=== PATIENT | male | born 1960 | race African-American/Black ===

== ENCOUNTER 2017-07-26 06:25 | Inpatient (IN) | payer OTHER ==
[2017-07-26] MEDS ORDERED: ceFAZolin 2 GM in Premix Bag 1 BAG IV ONE (07:19)
[2017-07-26] MEDS: Lactated Ringers 1,000 ML IV SCH ×2 (07:30→14:41)
--- NOTE | 2017-07-26 08:28 | PCM.PREANE ---
Preanesthetic Assessment - Anesthesia/Transfusion/Family Hx Anesthesia History: Prior Anesthesia Without Reaction Other Type of Anesthesia Reaction Comment: "father after coronary stent placement" "sister hard to wake" Family History of Anesthesia Reaction: No Transfusion History: No Prior Transfusion(s) - Review of Systems General: No Symptoms Pulmonary: No Symptoms Cardiovascular: No Symptoms Gastrointestinal: No Symptoms Neurological: No Symptoms Other: Reports: None - Physical Assessment NPO Status Date: 07/25/17 Height: 1.77 m Weight: 104.326 kg ASA Class: 2 Mental Status: Alert & Oriented x3 Airway Class: Mallampati = 2 Dentition: Reports: Normal Dentition ROM/Head Extension: Full Lungs: Clear to Auscultation, Normal Respiratory Effort Cardiovascular: Regular Rate, Regular Rhythm - Allergies Allergies/Adverse Reactions: Allergies Allergy/AdvReac Type Severity Reaction Status Date / Time No Known Allergies Allergy Verified 07/24/17 08:44 - Anesthesia Plan Pre-Op Medication Ordered: None - Acknowledgements Anesthesia Type Planned: Spinal Pt an Appropriate Candidate for the Planned Anesthesia: Yes Alternatives and Risks of Anesthesia Discussed w Pt/Guardian: Yes Pt/Guardian Understands and Agrees with Anesthesia Plan: Yes Additional Comments: PMH: CKD#, hld, HTN, chronic paresthesias RLL, occasional use of albuteral for wheezing without dx of COPD PreAnesthesia Questionnaire Cardiovascular History: Reports: Hypertension Respiratory History: Reports: Other (See Below) Other Respiratory History: "allergy induced SOB" has prescribed inhaler for this Gastrointestinal History: Reports: Other (See Below) Other Gastrointestinal History: occasional heartburn Musculoskeletal History: Reports: Fracture Other Musculoskeletal History: hx fx collarbone Endocrine/Metabolic History: Reports: Obesity/BMI 30+ - Past Surgical History Head Surgeries/Procedures: Reports: None Male Surgical History: Reports: Other (See Below) Other Male Surgeries/Procedures: circumcision at age 20 Musculoskeletal Surgical History: Reports: Other (See Below) Other Musculoskeletal Surgeries/Procedures:: hx crush injury to rt leg, surgery on rt leg x4 Dermatological Surgical History: Reports: Skin Graft - SUBSTANCE USE Smoking Status *Q: Never Smoker Recreational Drug Use History: No - HOME MEDS Home Medications: Home Meds Albuterol [IMW: Albuterol HFA] 2 puff INH ASDIRECTED PRN 07/24/17 [History] Cholecalciferol (Vitamin D3) [Vitamin D3] 1,000 units PO DAILY 07/24/17 [History ] Cyclobenzaprine [Flexeril] 10 mg PO ASDIRECTED PRN 07/24/17 [History] Lisinopril 10 mg PO DAILY 07/24/17 [History] Methocarbamol 750 mg PO TID PRN 07/24/17 [History] amLODIPine [Norvasc] 10 mg PO DAILY 07/24/17 [History] - CURRENT (IN HOUSE) MEDS Current Meds: Current Medications Tranexamic Acid (Cyklokapron) 2,000 mg IV ONETIME ONE Stop: 07/26/17 10:01 Discontinued Medications Cefazolin Sodium/Dextrose 2 gm (/ Premix) 50 mls @ 50 mls/hr IV ONETIME ONE Stop: 07/26/17 08:18 Tranexamic Acid (Cyklokapron) Confirm Administered Dose 2,000 mg .ROUTE .STK- MED ONE Stop: 07/26/17 07:31
[2017-07-26] MEDS ORDERED: Dexamethasone 4 MG/ML 5 ML MDV ONE (08:45)
[2017-07-26] MEDS ORDERED: Propofol 200 MG/20 ML SDV ONE (08:45)
[2017-07-26] MEDS ORDERED: Midazolam 1 MG/ML 2 ML SDV ONE ×2 (08:45→10:25)
[2017-07-26] MEDS ORDERED: diphenhydrAMINE 50 MG/ML SDV ONE (08:45)
[2017-07-26] MEDS ORDERED: Ondansetron 4 MG/2 ML SDV ONE (08:45)
[2017-07-26] MEDS ORDERED: fentaNYL 100 MCG/2 ML SDV ONE (08:45)
[2017-07-26] MEDS ORDERED: Phenylephrine 1% 10 MG/ML SDV ONE (11:02)
--- NOTE | 2017-07-26 12:27 | PCM.OPNOTE ---
- General Post-Op/Procedure Note Date of Surgery/Procedure: 07/26/17 Operative Procedure(s): right anterior REJI Findings: severe OA Pre Op Diagnosis: right hip osteoarthritis Post-Op Diagnosis: same Anesthesia Technique: Spinal Primary Surgeon: Ki Goodwin Mai Assembly Line Leader: Eva Waters Reason Assembly Line Leader Was Necessary: reduction, retracting, closing, manipulating Pathology: femoral head EBL in mLs: 700 Complications: none Condition: Good
[2017-07-26] MEDS ORDERED: Bisacodyl 10 MG Supp RECTAL PRN (12:39)
[2017-07-26] MEDS ORDERED: diphenhydrAMINE 25 MG Cap PO PRN (12:39)
[2017-07-26] MEDS ORDERED: Ondansetron 4 MG/2 ML SDV IV PRN (12:39)
[2017-07-26] MEDS ORDERED: Aluminum Hydroxide/Magnesium Hydroxide/Simethicone Susp 30 ML Cup PO PRN (12:39)
[2017-07-26] MEDS ORDERED: Albuterol 8 GM Inhaler INH PRN (12:40)
[2017-07-26] MEDS ORDERED: Cyclobenzaprine 10 MG Tab PO PRN (12:40)
--- NOTE | 2017-07-26 14:09 | PCM.POSTAN ---
POST ANESTHESIA ASSESSMENT - MENTAL STATUS Mental Status: Alert, Oriented - RESPIRATORY Respiratory Status: Respiratory Rate WNL, Airway Patent, O2 Saturation Stable - CARDIOVASCULAR CV Status: Pulse Rate WNL, Blood Pressure Stable - GASTROINTESTINAL GI Status: No Symptoms - POST OP HYDRATION Hydration Status: Adequate & Stable
[2017-07-26] MEDS: Acetaminophen/HYDROcodone 325-5 MG Tab PO PRN ×2 (15:10→19:17)
--- NOTE | 2017-07-26 17:41 | OR ---
SURGEON: Ki Gilmore MD DATE OF PROCEDURE: 07/26/2017 IMMERSION METAL CLEANER: Eva Waters PA-C. PREOPERATIVE DIAGNOSIS: Right hip osteoarthritis. POSTOPERATIVE DIAGNOSIS: Right hip osteoarthritis. OPERATION PERFORMED: Right anterior total hip arthroplasty. ANESTHESIA: Spinal with sedation. COMPLICATION: None. ESTIMATED BLOOD LOSS: 200 mL. SPECIMENS: None. IMPLANTS: Elaine [employer] Continuum trabecular metal shell cluster holes, 56 mm outer diameter, one 6.5 x 30 mm length bone screw, Vivacit-E neutral liner 36 mm inner diameter, Fitmore hip stem, size B standard offset 4, Biolox delta ceramic femoral head 36 mm diameter, zero neck length. INDICATIONS: The patient is a 56-year-old male with severe arthritis. He has failed conservative management treatment modification therapy. He wished undergo total hip replacement. He understands the risks, benefits, complications of the procedure including but not limited to infection, neurovascular injury, continued pain, DVT, leg length discrepancy, fracture, dislocation, deep infection, and he wished to proceed. DESCRIPTION OF PROCEDURE: The patient was seen in the preoperative area. Operative site was marked. The patient was transferred to the operating room, where spinal anesthetic was given. He was given sedation on the Allen table and placed supine and legs were placed in the leg bars with a narrow perineal post. Right hip was prepped and draped in a sterile fashion using alcohol and ChloraPrep with Ioban covering. He received preoperative antibiotics, Ancef, and also 2 g TXA. Formal time-out was taken, identifying the correct patient, procedure, and extremity. A 12 cm incision starting just lateral to the ASIS going obliquely down the femur was made. Dissection was carried down to subcutaneous tissues. Hemostasis was obtained. The fascia overlying the TFL was opened in a lateral to the lateral femoral cutaneous nerve and interval between sartorius and TFL and deep between the abductors and rectus were opened. The vastus lateralis fascia was opened and the anterior vessels were coagulated. A deep Slava tractor was placed. The capsule was then held and tagged with 2 FiberWires. The neck was cut from saddle region about 1.5 cm above the lesser trochanter and the head was removed. There was noted be severe arthritis. Remnants of labrum and pulvinar were removed and the inferior capsule was released as well as part of the iliopsoas tendon, because of severe tightness in the hip and preoperative flexion contracture. The head measured about 53 mm. Under fluoroscopic control after planing the bed to make sure the level of the hip. The acetabulum was sequentially reamed to 51 up to 55 mm. This had excellent fit and fill with the 56 mm trabecular metal shell with cluster screw hole straight superiorly in 40 degrees of abduction and 10 degrees of anteversion. This had excellent fit and fill. There was some uncovering laterally, but none anteriorly and bone screw was placed posterior superiorly and then after irrigating and drying the neutral liner was impacted. Attention was then paid to the femur. The femoral lift was placed. Leg was externally rotated, abducted, and extended. The superior capsule obturator, internus, and piriformis were released. Central canal finder was utilized and sequential broaching started rasp up to size B4 was made based on preoperative templating. The hip was trial reduced with an extended offset + 3.5 neck length. Printed overlay technique showed slightly long and slightly increased offset appeared to the opposite side. With fluoroscopy, the hip was then dislocated. The final B4 Fitmore extended offset stem was impacted in place following the [place] version. It was trial reduced with a zero neck length. Printed overlay technique showed equal leg lengths and slightly increased offset, which was deemed acceptable based on moving the hip. Hip was then dislocated and the Reilly taper was dried off and the final ceramic head, 36 mm, zero neck length was impacted. The hip was then relocated and 2 stay sutures were tied together. The fascia was closed with #1 Vicryl. Subcutaneous tissues with 2-0 Stratafix. Skin was closed running 4-0 Monocryl with Dermabond tape. Aquacel dressing was placed. The patient was transferred to recovery room in stable condition. Sponge and needle counts were correct at the end of the case. There were no complications. PLAN: The patient will be given aspirin for DVT prophylaxis. Weightbearing as tolerated. SHANA GUERRERO /[id number]
[2017-07-26] MEDS: Morphine 4 MG/ML Syringe IVPUSH PRN ×2 (18:31→21:16)
[2017-07-26] MEDS: ceFAZolin 2 GM in Premix Bag 1 BAG IV SCH (18:32)
[2017-07-26] MEDS: Docusate Sodium 100 MG Cap PO SCH (20:59)
[2017-07-27] MEDS: Acetaminophen/HYDROcodone 325-5 MG Tab PO PRN (00:22)
[2017-07-27] MEDS: Morphine 4 MG/ML Syringe IVPUSH PRN ×4 (00:41→13:35)
[2017-07-27] MEDS: Acetaminophen/oxyCODONE 325-5 MG Tab PO PRN ×4 (01:07→23:05)
[2017-07-27] MEDS: Lactated Ringers 1,000 ML IV SCH ×2 (01:10→15:04)
[2017-07-27] MEDS: ceFAZolin 2 GM in Premix Bag 1 BAG IV SCH (03:48)
[2017-07-27] MEDS: Aspirin 325 MG Tab.EC PO SCH ×2 (09:42→20:29)
[2017-07-27] MEDS: amLODIPine 5 MG Tab PO SCH (09:43)
[2017-07-27] MEDS: Losartan 50 MG Tab PO SCH (09:44)
[2017-07-27] MEDS: Cholecalciferol (Vitamin D3) 1,000 Unit Tab PO SCH (09:44)
[2017-07-27] MEDS: Docusate Sodium 100 MG Cap PO SCH ×2 (09:45→20:29)
--- NOTE | 2017-07-27 09:50 | PCM.SN ---
- Free Text/Narrative Note: S: Patient had lots of pain overnight in the thigh particularly muscle type pain. He was switched to Percocet and Valium was added. He has not been out of bed yet. He feels muscle aches stated in the past potassium has helped with this. He is eating with no issues. No other problems. Objective: Afebrile vital signs stable Dressing is clean dry and intact. There is a small amount of swelling in the thigh but none distally. He has normal sensation and motor distally with a 2+ pedal pulse. Hemoglobin is pending Assessment/plan: Postop day #1 right total hip arthroplasty - Weightbearing as tolerated with walker. Physical therapy. - Ecotrin for DVT prophylaxis and SCDs. - We'll add OxyContin and give him some potassium today. - He will hopefully revealed progress and possibly go home tomorrow.
--- NOTE | 2017-07-27 12:32 | PCM48HPAN ---
Post Anesthesia Note - EVALUATION WITHIN 48HRS OF ANESTHETIC Vital Signs in Normal Range: Yes Patient Participated in Evaluation: Yes Respiratory Function Stable: Yes Airway Patent: Yes Cardiovascular Function Stable: Yes Hydration Status Stable: Yes Pain Control Satisfactory: Yes Nausea and Vomiting Control Satisfactory: Yes Mental Status Recovered: Yes
[2017-07-27] MEDS ORDERED: Potassium Chloride 20 MEQ Tab.ER PO ONE (15:21)
[2017-07-27] MEDS: oxyCODONE ER 20 MG TAB.ER PO SCH (20:29)
[2017-07-28] MEDS: Lactated Ringers 1,000 ML IV SCH (00:07)
[2017-07-28] MEDS: Morphine 4 MG/ML Syringe IVPUSH PRN ×2 (00:07→06:59)
[2017-07-28] MEDS: Docusate Sodium 100 MG Cap PO SCH ×2 (09:53→20:35)
[2017-07-28] MEDS: Losartan 50 MG Tab PO SCH (09:54)
[2017-07-28] MEDS: Aspirin 325 MG Tab.EC PO SCH ×2 (09:54→20:35)
[2017-07-28] MEDS: Cholecalciferol (Vitamin D3) 1,000 Unit Tab PO SCH (09:55)
[2017-07-28] MEDS: Potassium Chloride 20 MEQ Tab.ER PO SCH (09:55)
[2017-07-28] MEDS: amLODIPine 5 MG Tab PO SCH (09:55)
[2017-07-28] MEDS: oxyCODONE ER 20 MG TAB.ER PO SCH ×2 (09:55→20:35)
[2017-07-28] MEDS ORDERED: Sodium Chloride 0.9% 2.5 ML Syringe FLUSH PRN (10:03)
[2017-07-28] MEDS ORDERED: Sodium Chloride 0.9% 10 ML Syringe FLUSH PRN (10:03)
--- NOTE | 2017-07-28 10:07 | PCM.SN ---
- Free Text/Narrative Note: S: Feels better today. Has ambulated once this morning. He refused therapy yesterday. He feels tired with morphine. No other issues. Objective: Afebrile vital signs stable Dressing is clean dry and intact. There is a small amount of swelling in the thigh but minimal distally. He has normal sensation and motor distally with a 2 + pedal pulse. Hemoglobin good Assessment/plan: Postop day #2 right total hip arthroplasty - Weightbearing as tolerated with walker. Physical therapy. - Ecotrin for DVT prophylaxis and SCDs. - to home when able. Follow-up in 2 weeks.
--- NOTE | 2017-07-28 10:09 | PCM.DCSUM1 ---
Discharge Summary - Hospital Course Brief History: Patient is admitted for elective right hip arthroplasty - Discharge Data Discharge Date: 07/28/17 Discharge Disposition: Home, Self-Care 01 Condition: Good - Patient Summary/Data Operative Procedure(s) Performed: right anterior REJI Consults: Consultations 07/26/17 12:39 PT Evaluation and Treatment [CONS] Routine Hospital Course: Patient was admitted and underwent uneventful total hip arthroplasty. Postoperatively he was admitted to the floor his pain was controlled with diet was advanced. He was slow to get up and move but eventually did. He was subsequently discharged home on postoperative day #2 - Patient Instructions Diet: Usual Diet as Tolerated Activity: Apply Ice, As Tolerated, Full Weight Bearing Driving: Do Not Drive Showering/Bathing: November Shower Wound/Incision Care: Do NOT Change Dressing Notify Provider of: Fever, Swelling and Redness, Drainage - Discharge Plan Home Medications: Home Meds Albuterol [IMW: Albuterol HFA] 2 puff INH ASDIRECTED PRN 07/24/17 [History] Cholecalciferol (Vitamin D3) [Vitamin D3] 1,000 units PO DAILY 07/24/17 [History ] Cyclobenzaprine [Flexeril] 10 mg PO ASDIRECTED PRN 07/24/17 [History] Methocarbamol 750 mg PO TID PRN 07/24/17 [History] amLODIPine [Norvasc] 5 mg PO DAILY 07/24/17 [History] Losartan [Cozaar] 25 mg PO DAILY 07/26/17 [History] Patient Handouts: Acetaminophen; Hydrocodone tablets or capsules, Total Hip Replacement, Care After, [id number], Docusate capsules, Aspirin Gastro- resistant tablet Referrals: Eva Waters PA [Physician Cement Side Laster] - 08/06/17 1:30 pm - Discharge Summary/Plan Comment DC Time >30 min.: No - Patient Data Vitals - Most Recent: Last Vital Signs Temp 36.8 C 07/28/17 08:00 Pulse 107 H 07/28/17 08:00 Resp 20 07/28/17 08:00 BP 119/66 07/28/17 09:55 Pulse Ox 94 L 07/28/17 08:00 Weight - Most Recent: 104.326 kg I&O - Last 24 hours: Intake & Output 07/27/17 07/28/17 07/28/17 22:59 06:59 14:59 Intake Total 2160 2265 Output Total 1223 3865 Balance 935 590 Lab Results - Last 24 hrs: Laboratory Results - last 24 hr 07/28/17 Range/Units 05:05 Hgb 10.0 L (13.0-17.0) g/dL Hct 29.5 L (38.0-50.0) % Med Orders - Current: Current Medications Al Hydroxide/Mg Hydroxide (Mag-Al Plus) 30 ml PO Q4H PRN PRN Reason: indigestion Albuterol (Ventolin Hfa) 0 gm INH ASDIRECTED PRN PRN Reason: Shortness of Breath Amlodipine Besylate (Norvasc) 5 mg PO DAILY [facility] Last Admin: 07/28/17 09:55 Dose: 5 mg Aspirin (Ecotrin) 325 mg PO BID [facility] Last Admin: 07/28/17 09:54 Dose: 325 mg Bisacodyl (Dulcolax) 10 mg RECTAL DAILY PRN PRN Reason: Constipation Cholecalciferol (Vitamin D3) 1,000 units PO DAILY [facility] Last Admin: 07/28/17 09:55 Dose: 1,000 units Cyclobenzaprine HCl (Flexeril) 10 mg PO BEDTIME PRN PRN Reason: Pain Last Admin: 07/26/17 23:32 Dose: 10 mg Diazepam (Valium) 5 mg IVPUSH TID PRN PRN Reason: Muscle Spasm Last Admin: 07/27/17 09:16 Dose: 5 mg Diphenhydramine HCl (Benadryl) 25 - 50 mg PO Q6H PRN PRN Reason: Itching Last Admin: 07/26/17 22:44 Dose: 25 mg Docusate Sodium (Colace) 100 mg PO BID [facility] Last Admin: 07/28/17 09:53 Dose: 100 mg Lactated Ringer's (Ringers, Lactated) 1,000 mls @ 100 mls/hr IV ASDIRECTED [facility] Last Admin: 07/28/17 00:07 Dose: 100 mls/hr Losartan Potassium (Cozaar) 25 mg PO DAILY [facility] Last Admin: 07/28/17 09:54 Dose: 25 mg Morphine Sulfate (Morphine) 1 - 3 mg IVPUSH Q3H PRN PRN Reason: Pain Last Admin: 07/28/17 06:59 Dose: 2 mg Ondansetron HCl (Zofran) 4 mg IV Q6HR PRN PRN Reason: NAUSEA/VOMITING Oxycodone HCl (Oxycontin) 20 mg PO Q12HR [facility] Last Admin: 07/28/17 09:55 Dose: 20 mg Oxycodone/Acetaminophen (Percocet 325-5 Mg) 1 tab PO Q4H PRN PRN Reason: Pain Last Admin: 07/27/17 23:05 Dose: 1 tab Potassium Chloride (Klor-Con M20) 40 meq PO DAILY [facility] Last Admin: 07/28/17 09:55 Dose: 40 meq Sodium Chloride (Saline Flush) 10 ml FLUSH ASDIRECTED PRN PRN Reason: Keep Vein Open Sodium Chloride (Saline Flush) 2.5 ml FLUSH ASDIRECTED PRN PRN Reason: Keep Vein Open Discontinued Medications Hydrocodone Bitart/Acetaminophen (Emmaus 325-5 Mg) 1 - 2 tab PO Q4H PRN PRN Reason: Pain Last Admin: 07/26/17 19:17 Dose: 2 tab Dexamethasone (Dexamethasone) Confirm Administered Dose 20 mg .ROUTE .STK-MED ONE Stop: 07/26/17 08:46 Diphenhydramine HCl (Benadryl) Confirm Administered Dose 50 mg .ROUTE .STK-MED ONE Stop: 07/26/17 08:46 Fentanyl (Sublimaze) Confirm Administered Dose 100 mcg .ROUTE .STK-MED ONE Stop: 07/26/17 08:46 Cefazolin Sodium/Dextrose 2 gm (/ Premix) 50 mls @ 50 mls/hr IV ONETIME ONE Stop: 07/26/17 08:18 Last Admin: 07/26/17 23:43 Dose: Not Given Cefazolin Sodium/Dextrose 2 gm (/ Premix) 50 mls @ 100 mls/hr IV Q8H [facility] Stop: 07/27/17 03:29 Last Admin: 07/27/17 03:48 Dose: 100 mls/hr Midazolam HCl (Versed 1 Mg/Ml) Confirm Administered Dose 2 mg .ROUTE .STK-MED ONE Stop: 07/26/17 08:46 Midazolam HCl (Versed 1 Mg/Ml) Confirm Administered Dose 2 mg .ROUTE .STK-MED ONE Stop: 07/26/17 10:26 Ondansetron HCl (Zofran) Confirm Administered Dose 4 mg .ROUTE .STK-MED ONE Stop: 07/26/17 08:46 Phenylephrine HCl (Delroy-Synephrine) Confirm Administered Dose 10 mg .ROUTE .STK- MED ONE Stop: 07/26/17 11:03 Potassium Chloride (Klor-Con M20) 40 meq PO ONETIME ONE Stop: 07/27/17 15:22 Last Admin: 07/27/17 16:12 Dose: 40 meq Propofol (Diprivan 20 Ml) Confirm Administered Dose 800 mg .ROUTE .STK-MED ONE Stop: 07/26/17 08:46 Tranexamic Acid (Cyklokapron) 2,000 mg IV ONETIME ONE Stop: 07/26/17 10:01 Last Admin: 07/26/17 23:43 Dose: Not Given Tranexamic Acid (Cyklokapron) Confirm Administered Dose 2,000 mg .ROUTE .STK- MED ONE Stop: 07/26/17 07:31 *Q Meaningful Use (DIS) - VTE *Q VTE Criteria *Q: - Stroke *Q Stroke Criteria *Q: - AMI *Q AMI Criteria *Q:
[2017-07-28] MEDS: Acetaminophen/oxyCODONE 325-5 MG Tab PO PRN ×2 (12:43→18:29)
[2017-07-29] MEDS: Acetaminophen/oxyCODONE 325-5 MG Tab PO PRN (04:13)
[2017-07-29] MEDS: Docusate Sodium 100 MG Cap PO SCH (09:09)
[2017-07-29] MEDS: oxyCODONE ER 20 MG TAB.ER PO SCH (09:09)
[2017-07-29] MEDS: Cholecalciferol (Vitamin D3) 1,000 Unit Tab PO SCH (09:09)
[2017-07-29] MEDS: Aspirin 325 MG Tab.EC PO SCH (09:09)
[2017-07-29] MEDS: Potassium Chloride 20 MEQ Tab.ER PO SCH (09:09)
[2017-07-29] MEDS: amLODIPine 5 MG Tab PO SCH (09:09)
[2017-07-29] MEDS: Losartan 50 MG Tab PO SCH (09:10)
--- NOTE | 2017-07-29 09:23 | CR ---
EXAMINATION: Right hip HISTORY: Total hip hardware COMPARISON: 06/06/2017 TECHNIQUE: 2 views FINDINGS/IMPRESSION: Operative control films provided demonstrate right total hip hardware in good po sition and alignment.
--- NOTE | 2017-07-29 10:38 | PCM.SN ---
- Free Text/Narrative Note: Subjective: Patient was not able to go home yesterday because of inability to walk for go up stairs. He is doing much better today. He is amply in the hallways with no issues. His back feels better than before surgery and he is happy with his hip pain. Subjective: Afebrile, vital signs stable Dressing is clean/dry/intact he has normal sensation and motor distally with no swelling. 2+ pedal pulse Assessment/plan: He is doing very well today ambulating. He'll continue with weightbearing as tolerated with a walker transitioning to a cane. He will continue aspirin for DVT prophylaxis. He will go home today he'll follow-up in 2 weeks. He'll leave his dressing on. Continue with Percocet.
== END 2017-07-29 11:00 | disposition home or self-care (01) | DRG 470 ==
LOC: MW.MS 06:25
PROVIDERS: ADMIT Orthopaedic Surgery; ATTEND Orthopaedic Surgery
PROC: 0SR90JZ Replacement of Right Hip Joint with Synthetic Substitute, Open Approach (ICD-10-PCS; principal; 2017-07-26)
DX: M16.11 Unilateral primary osteoarthritis, right hip (principal); Z79.899 Other long term (current) drug therapy
CPT/HCPCS: 01214; 36415; 76000; 76000-26; 85014; 85018; 88305; 88311; 97110-GP; 97162-GP; A9270-GY; C1713; C1776; J0690; J1100; J1200; J2250; J2270; J2370; J2405; J2704; J3010; J7120

== ENCOUNTER 2019-10-07 06:43 | Day surgery (SDC) | payer OTHER ==
[2019-10-07] MEDS ORDERED: Lactated Ringers 1,000 ML IV SCH (06:45)
[2019-10-07] MEDS ORDERED: fentaNYL 100 MCG/2 ML SDV ONE (07:03)
[2019-10-07] MEDS ORDERED: Propofol 200 MG/20 ML SDV ONE (07:03)
[2019-10-07] MEDS ORDERED: Midazolam 1 MG/ML 2 ML SDV ONE (07:03)
[2019-10-07] MEDS ORDERED: Bupivacaine 0.25%/EPINEPHrine 1:200,000 10 ML SDV ONE (07:32)
--- NOTE | 2019-10-07 07:40 | PCM.PREANE ---
Preanesthetic Assessment - Anesthesia/Transfusion/Family Hx Anesthesia History: Prior Anesthesia Without Reaction Other Type of Anesthesia Reaction Comment: "father after coronary stent placement" "sister hard to wake" Family History of Anesthesia Reaction: No Transfusion History: No Prior Transfusion(s) Intubation History: Unknown - Review of Systems General: No Symptoms Pulmonary: No Symptoms Cardiovascular: No Symptoms Gastrointestinal: No Symptoms Neurological: No Symptoms Other: Reports: None - Physical Assessment NPO Status Date: 10/06/19 NPO Status Time: 20:00 Vital Signs: Last Vital Signs Temp 36.9 C 10/07/19 07:00 Pulse 72 10/07/19 07:00 Resp 16 10/07/19 07:00 BP 137/91 H 10/07/19 07:00 Pulse Ox 94 L 10/07/19 07:00 Height: 5 ft 9 in Weight: 99.337 kg ASA Class: 2 Mental Status: Alert & Oriented x3 Airway Class: Mallampati = 2 Dentition: Reports: Normal Dentition, Partial (upper (removed)) Thyro-Mental Finger Breadths: 3 Mouth Opening Finger Breadths: 3 ROM/Head Extension: Full Lungs: Clear to Auscultation, Normal Respiratory Effort Cardiovascular: Regular Rate, Regular Rhythm - Allergies Allergies/Adverse Reactions: Allergies Allergy/AdvReac Type Severity Reaction Status Date / Time Penicillins Allergy Anaphylactic Verified 10/06/19 12:20 Shock shellfish derived Allergy Anaphylactic Verified 10/06/19 12:20 Shock - Blood Blood Available: No - Anesthesia Plan Pre-Op Medication Ordered: None - Acknowledgements Anesthesia Type Planned: MAC Pt an Appropriate Candidate for the Planned Anesthesia: Yes Alternatives and Risks of Anesthesia Discussed w Pt/Guardian: Yes Pt/Guardian Understands and Agrees with Anesthesia Plan: Yes PreAnesthesia Questionnaire HEENT History: Reports: Other (See Below) Other HEENT History: wears glasses, has upper front partial removable denture Cardiovascular History: Reports: Hypertension Respiratory History: Gastrointestinal History: Reports: Other (See Below) Other Gastrointestinal History: occasional heartburn Musculoskeletal History: Reports: Fracture Other Musculoskeletal History: hx fx collarbone Endocrine/Metabolic History: Reports: Diabetes, Type II (lost a lot of weight- thinks he got rid of diabetes, does not check glucose levels), Obesity/BMI 30+ ( BMI 32.3) - Past Surgical History Head Surgeries/Procedures: Reports: None GI Surgical History: Reports: Colonoscopy, Hernia, Inguinal Male Surgical History: Reports: Other (See Below) Other Male Surgeries/Procedures: circumcision at age 20 Musculoskeletal Surgical History: Reports: Hip Replacement (right), Other (See Below) Other Musculoskeletal Surgeries/Procedures:: hx crush injury to rt leg, surgery on rt leg x4 (fasciotomy) Dermatological Surgical History: Reports: Skin Graft - SUBSTANCE USE Smoking Status *Q: Never Smoker Recreational Drug Use History: No - HOME MEDS Home Medications: Home Meds amLODIPine [Norvasc] 5 mg PO QAM 07/24/17 [History] Losartan [Cozaar] 25 mg PO QAM 07/26/17 [History] Cholecalciferol (Vitamin D3) [Vitamin D3] 25 mcg PO DAILY 10/06/19 [History] metFORMIN [Glucophage XR] 500 mg PO QAM 10/06/19 [History] - CURRENT (IN HOUSE) MEDS Current Meds: Current Medications Lactated Ringer's (Ringers, Lactated) 1,000 mls @ 100 mls/hr IV ASDIRECTED YASMIN Discontinued Medications Bupivacaine HCl/Epinephrine Bitart (Marcaine 0.25%/Epinephrine 1:200,000) Confirm Administered Dose 10 ml .ROUTE .STK-MED ONE Stop: 10/07/19 07:33 Fentanyl (Sublimaze) Confirm Administered Dose 100 mcg .ROUTE .STK-MED ONE Stop: 10/07/19 07:04 Midazolam HCl (Versed 1 Mg/Ml) Confirm Administered Dose 2 mg .ROUTE .STK-MED ONE Stop: 10/07/19 07:04 Propofol (Diprivan 20 Ml) Confirm Administered Dose 200 mg .ROUTE .STK-MED ONE Stop: 10/07/19 07:04
[2019-10-07] MEDS ORDERED: Octyl 2-Cyanoacrylate 1 Tube ONE (08:09)
--- NOTE | 2019-10-07 09:10 | PCM.OPNOTE ---
- General Post-Op/Procedure Note Date of Surgery/Procedure: 10/07/19 Operative Procedure(s): excisional biopsy, face mass, right Findings: cystic mass w black content 8 mm, margin 3 mm diameter, oriented short 6 oclock , long 12 oclock; [id number] Pre Op Diagnosis: r face mass Post-Op Diagnosis: Same Anesthesia Technique: General LMA Primary Surgeon: Eren Gibbs Pathology: sent, long 12 oclock, short 6 oclock Complications: None Condition: Good
[2019-10-07] MEDS ORDERED: Acetaminophen/oxyCODONE 325-5 MG Tab PO PRN (09:11)
--- NOTE | 2019-10-07 09:26 | PCM.POSTAN ---
POST ANESTHESIA ASSESSMENT - MENTAL STATUS Mental Status: Alert, Oriented - VITAL SIGNS Vital Signs: Last Vital Signs Temp 36.5 C 10/07/19 08:53 Pulse 68 10/07/19 09:19 Resp 13 10/07/19 09:19 BP 123/83 10/07/19 09:19 Pulse Ox 95 10/07/19 09:19 - RESPIRATORY Respiratory Status: Respiratory Rate WNL, Airway Patent, O2 Saturation Stable - CARDIOVASCULAR CV Status: Pulse Rate WNL, Blood Pressure Stable - GASTROINTESTINAL GI Status: No Symptoms - PAIN Pain Score: 0 - POST OP HYDRATION Hydration Status: Adequate & Stable
--- NOTE | 2019-10-07 10:01 | PCM48HPAN ---
Post Anesthesia Note - EVALUATION WITHIN 48HRS OF ANESTHETIC Vital Signs in Normal Range: Yes Patient Participated in Evaluation: Yes Respiratory Function Stable: Yes Airway Patent: Yes Cardiovascular Function Stable: Yes Hydration Status Stable: Yes Pain Control Satisfactory: Yes Nausea and Vomiting Control Satisfactory: Yes Mental Status Recovered: Yes Vital Signs: Last Vital Signs Temp 36.4 C 10/07/19 09:25 Pulse 60 10/07/19 09:55 Resp 16 10/07/19 09:55 BP 117/73 10/07/19 09:55 Pulse Ox 96 10/07/19 09:55 - COMMENTS/OBSERVATIONS Free Text/Narrative:: No anesthesia problems
--- NOTE | 2019-10-07 16:23 | OR ---
SURGEON: Eren Gibbs MD DATE OF PROCEDURE: 10/07/2019 PREOPERATIVE DIAGNOSIS: Right facial mass. POSTOPERATIVE DIAGNOSIS: Right facial mass. PROCEDURE PERFORMED: Excisional biopsy. PRIMARY SURGEON: Eren Gibbs MD COMPLICATIONS: None. FINDING: A cystic mass about 8 mm and a margin 3 mm diameter was kept. Specimen was oriented with short stitch at 6 o'clock, long stitch at 12 o'clock, and sent for pathology. DESCRIPTION OF PROCEDURE: The patient was taken to the operating room and placed in the supine position. Upon induction of LMA, the patient was prepped and draped in sterile fashion. Time-out was being called, the patient identified, procedure identified, and antibiotic given. Procedure then started. The mass was palpated a little bit just anterior to the upper pole of the right ear, about 4 cm anterior, and just below the hairline, away from the temporal region. Using an 11 blade, a fish- mouth incision was made and the mass was dissected from surrounding structure. Did not get into the mass, and mass was excised and sent for pathology. Orientation with short stitch at 6 o'clock, long stitch at 12 o'clock. Area was irrigated and hemostasis achieved by the use of pressure. Wound was closed with 4-0 Ethilon and followed with Steri-Strips. The patient was then awakened, extubated, and transferred to recovery room in hemodynamically stable condition. The patient tolerated the procedure well. There were no intraoperative complications. Dr. Gibbs was present through the whole procedure. LILIA / CESAR /[id number]
== END 2019-10-07 10:15 | disposition home or self-care (01) ==
LOC: MW.SDS 06:43
PROVIDERS: ATTEND Surgery
DX: L72.0 Epidermal cyst (principal); I10 Essential (primary) hypertension; E11.9 Type 2 diabetes mellitus without complications; E66.9 Obesity, unspecified; Z98.890 Other specified postprocedural states; Z88.0 Allergy status to penicillin; Z91.013 Allergy to seafood; Z79.84 Long term (current) use of oral hypoglycemic drugs; Z79.899 Other long term (current) drug therapy; Z68.32 Body mass index [BMI] 32.0-32.9, adult
CPT/HCPCS: 11442; J2250; J2704; J3010; J3490; J7120; 00300; 88304; A9270-GY

== ENCOUNTER 2020-04-27 06:52 | Day surgery (SDC) | payer OTHER ==
[~2020-04-27 06:52] MED LIST: Lactated Ringers 1,000 ML IV SCH
[2020-04-27] MEDS ORDERED: Sodium Chloride 0.9% 10 ML SDV IV PRN (07:02)
[2020-04-27] MEDS ORDERED: Sodium Chloride 0.9% 10 ML Syringe FLUSH PRN (07:02)
[2020-04-27] MEDS ORDERED: Sodium Chloride 0.9% 2.5 ML Syringe FLUSH PRN (07:02)
[2020-04-27] MEDS ORDERED: Lactated Ringers 1,000 ML IV SCH (07:15)
[2020-04-27] MEDS ORDERED: Lidocaine 2% 5 ML SDV ONE (07:24)
[2020-04-27] MEDS ORDERED: fentaNYL 100 MCG/2 ML SDV ONE (07:24)
[2020-04-27] MEDS ORDERED: Propofol 200 MG/20 ML SDV ONE (07:24)
--- NOTE | 2020-04-27 08:31 | PCM.PREANE ---
Preanesthetic Assessment - Anesthesia/Transfusion/Family Hx Anesthesia History: Prior Anesthesia Without Reaction Other Type of Anesthesia Reaction Comment: "father after coronary stent placement" "sister hard to wake" Family History of Anesthesia Reaction: No Transfusion History: No Prior Transfusion(s) Intubation History: Unknown - Review of Systems General: No Symptoms Pulmonary: No Symptoms Cardiovascular: No Symptoms Gastrointestinal: No Symptoms Neurological: No Symptoms Other: Reports: None - Physical Assessment NPO Status Date: 04/26/20 Vital Signs: Last Vital Signs Temp 97.2 F 04/27/20 08:25 Pulse 65 04/27/20 08:25 Resp 16 04/27/20 08:25 BP 158/93 H 04/27/20 08:25 Pulse Ox 95 04/27/20 08:25 Height: 5 ft 9 in Weight: 98.883 kg ASA Class: 2 Mental Status: Alert & Oriented x3 Airway Class: Mallampati = 2 Dentition: Reports: Broken Tooth/Teeth, Missing Tooth/Teeth ROM/Head Extension: Full Lungs: Clear to Auscultation, Normal Respiratory Effort Cardiovascular: Regular Rate, Regular Rhythm - Lab Values: Laboratory Last Values SARS-CoV-2 RNA (BINDU) NEGATIVE (NEGATIVE) 04/27/20 06:58 - Allergies Allergies/Adverse Reactions: Allergies Allergy/AdvReac Type Severity Reaction Status Date / Time Penicillins Allergy Anaphylactic Verified 04/27/20 08:28 Shock - Blood Blood Available: No - Anesthesia Plan Pre-Op Medication Ordered: None - Acknowledgements Anesthesia Type Planned: General Anesthesia Pt an Appropriate Candidate for the Planned Anesthesia: Yes Alternatives and Risks of Anesthesia Discussed w Pt/Guardian: Yes Pt/Guardian Understands and Agrees with Anesthesia Plan: Yes Additional Comments: PMH: dm22, htn, hld PreAnesthesia Questionnaire HEENT History: Reports: Other (See Below) Other HEENT History: wears glasses, has upper front partial removable denture Cardiovascular History: Reports: Hypertension Respiratory History: Reports: None Gastrointestinal History: Reports: None, Other (See Below) Genitourinary History: Reports: None Musculoskeletal History: Reports: Fracture Other Musculoskeletal History: hx fx collarbone, right leg Neurological History: Reports: None Psychiatric History: Reports: None Endocrine/Metabolic History: Reports: Obesity/BMI 30+ Other Endocrine/Metabolic History: states was borderline diabetic and was on Metformin but lost weight and no longer on Metformin Hematologic History: Reports: None Immunologic History: Reports: None Oncologic (Cancer) History: Reports: None - Past Surgical History Head Surgeries/Procedures: Reports: None GI Surgical History: Reports: Colonoscopy, Hernia, Inguinal Male Surgical History: Reports: Other (See Below) Other Male Surgeries/Procedures: circumcision at age 20 Musculoskeletal Surgical History: Reports: Hip Replacement, Other (See Below) Other Musculoskeletal Surgeries/Procedures:: hx crush injury to rt leg, surgery on rt leg x4 (fasciotomy), rt hip replacement Dermatological Surgical History: Reports: Skin Graft - SUBSTANCE USE Smoking Status *Q: Never Smoker - HOME MEDS Home Medications: Home Meds amLODIPine [Norvasc] 10 mg PO QAM 07/24/17 [History] Losartan [Cozaar] 25 mg PO QAM 07/26/17 [History] Cholecalciferol (Vitamin D3) [Vitamin D3] 1,000 units PO DAILY 10/06/19 [History] - CURRENT (IN HOUSE) MEDS Current Meds: Current Medications Lactated Ringer's (Ringers, Lactated) 1,000 mls @ 125 mls/hr IV ASDIRECTED YASMIN Lactated Ringer's (Ringers, Lactated) 1,000 mls @ 125 mls/hr IV ASDIRECTED YASMIN Last Admin: 04/27/20 08:28 Dose: 125 mls/hr Documented by: Sodium Chloride (Saline Flush) 10 ml FLUSH ASDIRECTED PRN PRN Reason: Keep Vein Open Sodium Chloride (Saline Flush) 2.5 ml FLUSH ASDIRECTED PRN PRN Reason: Keep Vein Open Sodium Chloride (Normal Saline) 10 ml IV ASDIRECTED PRN PRN Reason: IV Use Discontinued Medications Fentanyl (Sublimaze) Confirm Administered Dose 100 mcg .ROUTE .STK-MED ONE Stop: 04/27/20 07:25 Lidocaine (Xylocaine-Mpf 2%) Confirm Administered Dose 5 ml .ROUTE .STK-MED ONE Stop: 04/27/20 07:25 Propofol (Diprivan 20 Ml) Confirm Administered Dose 400 mg .ROUTE .STK-MED ONE Stop: 04/27/20 07:25
--- NOTE | 2020-04-27 09:31 | PCM.OPNOTE ---
- General Post-Op/Procedure Note Date of Surgery/Procedure: 04/27/20 Operative Procedure(s): colonoscoy w snare Findings: see [id number] Pre Op Diagnosis: fam hx of colonca Post-Op Diagnosis: colon polyp Anesthesia Technique: Moderate Sedation Primary Surgeon: Eren Gibbs Pathology: 5 mm sessile polyp at 45cm when scope withdrawal, snared Complications: None Condition: Good
--- NOTE | 2020-04-27 10:24 | PCM.POSTAN ---
POST ANESTHESIA ASSESSMENT - MENTAL STATUS Mental Status: Alert, Oriented - VITAL SIGNS Vital Signs: Last Vital Signs Temp 96.8 F L 04/27/20 09:23 Pulse 65 04/27/20 09:33 Resp 12 04/27/20 09:33 BP 124/77 04/27/20 09:33 Pulse Ox 97 04/27/20 09:33 - RESPIRATORY Respiratory Status: Respiratory Rate WNL, Airway Patent, O2 Saturation Stable - CARDIOVASCULAR CV Status: Pulse Rate WNL, Blood Pressure Stable - GASTROINTESTINAL GI Status: No Symptoms - POST OP HYDRATION Hydration Status: Adequate & Stable
--- NOTE | 2020-04-27 10:24 | PCM48HPAN ---
Post Anesthesia Note - EVALUATION WITHIN 48HRS OF ANESTHETIC Vital Signs in Normal Range: Yes Patient Participated in Evaluation: Yes Respiratory Function Stable: Yes Airway Patent: Yes Cardiovascular Function Stable: Yes Hydration Status Stable: Yes Pain Control Satisfactory: Yes Nausea and Vomiting Control Satisfactory: Yes Mental Status Recovered: Yes Vital Signs: Last Vital Signs Temp 96.8 F L 04/27/20 09:23 Pulse 65 04/27/20 09:33 Resp 12 04/27/20 09:33 BP 124/77 04/27/20 09:33 Pulse Ox 97 04/27/20 09:33
--- NOTE | 2020-04-27 15:11 | OR ---
SURGEON: Eren Gibbs MD DATE OF PROCEDURE: 04/27/2020 PREOPERATIVE DIAGNOSIS: Positive family history of colon cancer. POSTOPERATIVE DIAGNOSIS: Colon polyp. PROCEDURE PERFORMED: Colonoscopy with snare polypectomy. DESCRIPTION OF PROCEDURE: The patient was taken to the endoscopy room. A time out was called, patient identified, and procedure identified. Diprivan was then administrated. Patient went from awake to sleep, hearing doctor talking or door closing is normal. Perineum inspection and digital examination were then performed. A well- lubricated colonoscope was gently inserted through the rectum, advanced past the rectosigmoid junction, the descending colon, splenic flexure, transverse colon, hepatic flexure, ascending colon, arrived to the cecum. Cecum was identified as dictated in the finding. Then the scope was carefully withdrawn while attention was paid to the mucosal surface for any abnormality. Air will be sucked out during the scope withdrawal. At the rectum, retroflexed to examine any rectal diseases, fistula or hemorrhoids. During mucosal examination, abnormality or polyp encountered. Using snare equipment, the abnormality or the polyp was then snared off using electrocautery. The Patient tolerated procedure well. There were no intraoperative complications, and Dr. Gibbs was present throughout the whole procedure. FINDINGS: 1. The patient is easily sedated with BAND TUMBLER and Diprivan, the patient is soundly snoring. 2. Bowel prep is average to a little bit below average, a large amount of yellow opacified liquid stool requiring a lot of irrigation, but they are very easy to displace. 3. Colon rather straightforward. Cecum indicated by ileocecal fold, one-to- one indentation, appendiceal orifice. ScopeGuide is pointing south. Light emittance is not observed. Mucosa examined upon scope pulling out. The patient has one small polyp, sessile, about 5 mm, at distance 45 cm when scope coming out and was snared and captured and sent for pathology. Other than that, there is no other etiology. No diverticulosis, mass, growth, inflammation, stricture, AV malformation, bleeding, none of those. The patient has mild internal hemorrhoids. The patient would benefit from repeat colonoscopy. It depends on the pathology of the polyp or if clinically indicated otherwise. LILIA / CESAR /[id number]
== END 2020-04-27 10:20 | disposition home or self-care (01) ==
LOC: MW.SDS 06:52
PROVIDERS: ATTEND Surgery
DX: Z12.11 Encounter for screening for malignant neoplasm of colon (principal); D12.6 Benign neoplasm of colon, unspecified; K64.8 Other hemorrhoids; Z01.812 Encounter for preprocedural laboratory examination; Z20.828 Contact with and (suspected) exposure to other viral communicable diseases; E11.9 Type 2 diabetes mellitus without complications; E78.5 Hyperlipidemia, unspecified; I10 Essential (primary) hypertension; E66.9 Obesity, unspecified; Z98.890 Other specified postprocedural states; Z79.899 Other long term (current) drug therapy; Z88.0 Allergy status to penicillin; Z91.013 Allergy to seafood; Z80.0 Family history of malignant neoplasm of digestive organs; Z68.32 Body mass index [BMI] 32.0-32.9, adult
CPT/HCPCS: 45385; 87635; 88305; J2001; J2704; J3010; J7120; 00812; U0002

== ENCOUNTER 2020-06-24 10:59 | Observation (INO) | payer OTHER ==
[2020-06-24] MEDS ORDERED: Aspirin 81 MG Tab.Chew PO ONE ×2 (11:06→11:08)
--- NOTE | 2020-06-24 11:22 | EDM.PDOC ---
ED HPI GENERAL MEDICAL PROBLEM - General Chief Complaint: Chest Pain Stated Complaint: EMS ARRIVAL Time Seen by Provider: 06/24/20 11:04 Source of Information: Reports: Patient History Limitations: Reports: No Limitations - History of Present Illness INITIAL COMMENTS - FREE TEXT/NARRATIVE: Patient is a 59-year-old male who presents today for tingling of his belly right hip and chest. Patient states the symptoms been going on for the past few months. Patient is very difficult to get and obtain history from is also noted patient note from the [place] [facility]. Patient currently on exam denies any chest pain shortness of breath nausea vomiting. Patient did mention that since he had some type of procedure done on his hip he has been having his feelings of tingling and may concern today to make sure that he does not have infection of his hip. Patient EKG does have some concerning findings of possible elevations in V2 and V3 however patient denying chest pain states that the tingling's been going on for 3 months. neck Pain Score (Numeric/FACES): 1 - Related Data Allergies Allergy/AdvReac Type Severity Reaction Status Date / Time Penicillins Allergy Anaphylactic Verified 06/24/20 14:16 Shock Home Meds: Home Meds amLODIPine [Norvasc] 10 mg PO QAM 07/24/17 [History] Losartan [Cozaar] 25 mg PO QAM 07/26/17 [History] Cholecalciferol (Vitamin D3) [Vitamin D3] 50 mcg PO DAILY 10/06/19 [History] Rosuvastatin [Crestor] 2.5 mg PO BEDTIME 06/24/20 [History] Sildenafil [Viagra] 50 mg PO BEDTIME PRN 06/24/20 [History] metFORMIN HCl [Metformin HCl ER] 1,000 mg PO DAILY 06/24/20 [History] methocarbamoL [Methocarbamol] 750 mg PO TID PRN 06/24/20 [History] Past Medical History HEENT History: Reports: Other (See Below) Other HEENT History: wears glasses, has upper front partial removable denture Cardiovascular History: Reports: Hypertension Respiratory History: Reports: None Gastrointestinal History: Reports: None, Other (See Below) Genitourinary History: Reports: None Musculoskeletal History: Reports: Fracture Other Musculoskeletal History: hx fx collarbone, right leg Neurological History: Reports: None Psychiatric History: Reports: None Endocrine/Metabolic History: Reports: Obesity/BMI 30+ Other Endocrine/Metabolic History: states was borderline diabetic and was on Metformin but lost weight and no longer on Metformin Hematologic History: Reports: None Immunologic History: Reports: None Oncologic (Cancer) History: Reports: None - Past Surgical History Head Surgeries/Procedures: Reports: None GI Surgical History: Reports: Colonoscopy, Hernia, Inguinal Male Surgical History: Reports: Other (See Below) Other Male Surgeries/Procedures: circumcision at age 20 Musculoskeletal Surgical History: Reports: Hip Replacement, Other (See Below) Other Musculoskeletal Surgeries/Procedures:: hx crush injury to rt leg, surgery on rt leg x4 (fasciotomy), rt hip replacement Dermatological Surgical History: Reports: Skin Graft Social & Family History - Family History Family Medical History: No Pertinent Family History ED ROS GENERAL - Review of Systems Review Of Systems: See Below Constitutional: Reports: No Symptoms HEENT: Reports: No Symptoms Respiratory: Reports: No Symptoms Cardiovascular: Reports: No Symptoms Endocrine: Reports: No Symptoms GI/Abdominal: Reports: No Symptoms : Reports: No Symptoms Musculoskeletal: Reports: No Symptoms Skin: Reports: No Symptoms Neurological: Reports: No Symptoms Psychiatric: Reports: No Symptoms Hematologic/Lymphatic: Reports: No Symptoms Immunologic: Reports: No Symptoms ED EXAM, GENERAL - Physical Exam Exam: See Below Exam Limited By: No Limitations General Appearance: Alert, No Apparent Distress Eye Exam: Bilateral Eye: EOMI, PERRL Respiratory/Chest: No Respiratory Distress, Lungs Clear Cardiovascular: Normal Peripheral Pulses, Regular Rate, Rhythm GI/Abdominal: Normal Bowel Sounds, Soft, Non-Tender Extremities: Normal Inspection, Normal Range of Motion Neurological: Alert, Oriented, CN II-XII Intact, Normal Cognition #1 Interpretation EKG Date: 06/24/20 Time: 10:58 Rhythm: NSR Rate (Beats/Min): 64 [place]: Normal ST-T: Elevated Course - Vital Signs Last Recorded V/S: Last Vital Signs Temp 98.9 F 06/24/20 13:54 Pulse 59 L 06/24/20 13:54 Resp 18 06/24/20 13:54 BP 153/102 H 06/24/20 13:54 Pulse Ox 97 06/24/20 13:54 - Orders/Labs/Meds Orders: Active Orders 24 hr Category Date Time Status CORONAVIRUS COVID-19 PCR PHL Stat Lab 06/24/20 12:16 Ordered Medication Orders Amlodipine Besylate (Norvasc) 10 mg PO QAM [facility] [place] Cholecalciferol (Vitamin D3) 50 mcg PO DAILY [facility] Losartan Potassium (Cozaar) 25 mg PO QAM YASMIN Methocarbamol (Methocarbamol) 750 mg PO TID PRN PRN Reason: Other Rosuvastatin 2.5 Mg 1 each PO BEDTIME [facility] Labs: Laboratory Tests 06/24/20 06/24/20 06/24/20 Range/Units 11:00 11:00 11:00 WBC 4.06 (4.0-11.0) K/uL RBC 5.29 (4.50-5.90) M/uL Hgb 15.6 (13.0-17.0) g/dL Hct 45.8 (38.0-50.0) % MCV 86.6 (80.0-98.0) fL MCH 29.5 (27.0-32.0) pg MCHC 34.1 (31.0-37.0) g/dL RDW Std Deviation 43.0 (28.0-62.0) fl RDW Coeff of Agatha 14 (11.0-15.0) % Plt Count 168 (150-400) K/uL MPV 9.80 (7.40-12.00) fL Neut % (Auto) 39.7 L (48.0-80.0) % Lymph % (Auto) 43.3 H (16.0-40.0) % Kings % (Auto) 9.4 (0.0-15.0) % Eos % (Auto) 7.4 H (0.0-7.0) % Baso % (Auto) 0.2 (0.0-1.5) % Neut # (Auto) 1.6 (1.4-5.7) K/uL Lymph # (Auto) 1.8 (0.6-2.4) K/uL Kings # (Auto) 0.4 (0.0-0.8) K/uL Eos # (Auto) 0.3 (0.0-0.7) K/uL Baso # (Auto) 0.0 (0.0-0.1) K/uL Nucleated RBC % 0.0 /100WBC Nucleated RBCs # 0 K/uL INR 1.03 APTT 23.6 (18.6-31.3) SEC Sodium 139 (136-148) mmol/L Potassium 4.3 (3.5-5.1) mmol/L Chloride 106 (98-107) mmol/L Carbon Dioxide 28.1 (21.0-32.0) mmol/L BUN 20 H (7.0-18.0) mg/dL Creatinine 1.4 H (0.8-1.3) mg/dL Est Cr Clr Drug Dosing 56.81 mL/min Estimated GFR (MDRD) > 60.0 ml/min Glucose 108 H (74-106) mg/dL Calcium 9.2 (8.5-10.1) mg/dL Total Bilirubin 0.5 (0.2-1.0) mg/dL AST 24 (15-37) IU/L ALT 46 (14-63) IU/L Alkaline Phosphatase 89 (46-116) U/L Creatine Kinase 324 H (26-308) U/L Troponin I < 0.050 (0.000-0.056) ng/mL Total Protein 7.6 (6.4-8.2) g/dL Albumin 3.9 (3.4-5.0) g/dL Globulin 3.7 (2.6-4.0) g/dL Albumin/Globulin Ratio 1.1 (0.9-1.6) SARS-CoV-2 RNA (B[facility]U) (NEGATIVE) 06/24/20 Range/Units 12:00 WBC (4.0-11.0) K/uL RBC (4.50-5.90) M/uL Hgb (13.0-17.0) g/dL Hct (38.0-50.0) % MCV (80.0-98.0) fL MCH (27.0-32.0) pg MCHC (31.0-37.0) g/dL RDW Std Deviation (28.0-62.0) fl RDW Coeff of Agatha (11.0-15.0) % Plt Count (150-400) K/uL MPV (7.40-12.00) fL Neut % (Auto) (48.0-80.0) % Lymph % (Auto) (16.0-40.0) % Kings % (Auto) (0.0-15.0) % Eos % (Auto) (0.0-7.0) % Baso % (Auto) (0.0-1.5) % Neut # (Auto) (1.4-5.7) K/uL Lymph # (Auto) (0.6-2.4) K/uL Kings # (Auto) (0.0-0.8) K/uL Eos # (Auto) (0.0-0.7) K/uL Baso # (Auto) (0.0-0.1) K/uL Nucleated RBC % /100WBC Nucleated RBCs # K/uL INR APTT (18.6-31.3) SEC Sodium (136-148) mmol/L Potassium (3.5-5.1) mmol/L Chloride (98-107) mmol/L Carbon Dioxide (21.0-32.0) mmol/L BUN (7.0-18.0) mg/dL Creatinine (0.8-1.3) mg/dL Est Cr Clr Drug Dosing mL/min Estimated GFR (MDRD) ml/min Glucose (74-106) mg/dL Calcium (8.5-10.1) mg/dL Total Bilirubin (0.2-1.0) mg/dL AST (15-37) IU/L ALT (14-63) IU/L Alkaline Phosphatase (46-116) U/L Creatine Kinase (26-308) U/L Troponin I (0.000-0.056) ng/mL Total Protein (6.4-8.2) g/dL Albumin (3.4-5.0) g/dL Globulin (2.6-4.0) g/dL Albumin/Globulin Ratio (0.9-1.6) SARS-CoV-2 RNA (B[facility]U) NEGATIVE (NEGATIVE) Meds: Medications Generic Name Dose Route Start Last Admin Trade Name Freq PRN Reason Stop Dose Admin Amlodipine Besylate 10 mg 06/25/20 09:00 Norvasc PO QAM [facility] Cholecalciferol 50 mcg 06/25/20 09:00 Vitamin D3 PO DAILY YASMIN Losartan Potassium 25 mg 06/25/20 09:00 Cozaar PO QAM YASMIN Methocarbamol 750 mg 06/24/20 14:03 Methocarbamol PO TID PRN Other Rosuvastatin 2.5 Mg 1 each 06/24/20 21:00 PO BEDTIME YASMIN Discontinued Medications Generic Name Dose Route Start Last Admin Trade Name Jamila PRN Reason Stop Dose Admin Aspirin 324 mg 06/24/20 11:08 06/24/20 11:12 Aspirin PO 06/24/20 11:09 Not Given ONETIME ONE Aspirin 324 mg 06/24/20 11:06 06/24/20 11:12 Aspirin PO 06/24/20 11:07 324 mg ONETIME ONE Administration - Re-Assessments/Exams Free Text/Narrative Re-Assessment/Exam: 06/24/20 13:15 Spoke to cardiology at [facility] about his EKG findings there were EKG established STEMI and they recommend to trend troponins and possible overnight observation. Cardiology phone numbers attached to this note.[phone] 06/24/20 14:48 Noted to the hospital here for observation. Departure - Departure Time of Disposition: 13:15 Disposition: Admitted As Inpatient 66 Condition: Good Clinical Impression: ACS (acute coronary syndrome) - Discharge Information *PRESCRIPTION DRUG MONITORING PROGRAM REVIEWED*: Not Applicable *COPY OF PRESCRIPTION DRUG MONITORING REPORT IN PATIENT LEE: Not Applicable Sepsis Event Note (ED) - Focused Exam Vital Signs: Vital Signs Temp Pulse Resp BP Pulse Ox 06/24/20 13:07 56 L 18 144/94 H 97 06/24/20 12:52 54 L 18 137/87 98 06/24/20 12:37 57 L 18 155/92 H 98 06/24/20 12:22 64 18 151/103 H 98 06/24/20 12:09 66 18 179/103 H 98 06/24/20 11:37 57 L 18 147/89 H 98 06/24/20 11:22 60 18 158/91 H 98 06/24/20 11:05 98.3 F 65 18 184/126 H 96 - My Orders Last 24 Hours: My Active Orders 06/24/20 12:16 CORONAVIRUS COVID-19 PCR PHL Stat - Assessment/Plan Last 24 Hours: My Active Orders 06/24/20 12:16 CORONAVIRUS COVID-19 PCR PHL Stat Plan: Patient is a 59-year-old male who presented today for complaints of tingling in his hip evaluate left-sided chest been present for the past 2 weeks. Patient does have some concerning EKG findings. However patient is not having any chest pain and symptoms have been going on for the past few months. Will consult cardiology about EKG findings obtain x-ray labs and give aspirin.
[2020-06-24 11:43] LABS: BLOOD UREA NITROGEN,BUN 20 mg/dL (7.0-18.0); CARBON DIOXIDE,CO2 28.1 mmol/L (21.0-32.0); CHLORIDE,CL 106 mmol/L (98-107); GLUCOSE RANDOM 108 mg/dL (74-106); POTASSIUM,K 4.3 mmol/L (3.5-5.1); SODIUM,NA 139 mmol/L (136-148)
--- NOTE | 2020-06-24 12:05 | CR ---
Indication: Previous hip surgery Comparison: Two views right hip January 13, 2018 Technique: AP and frogleg views right hip Findings: There is no displaced fracture or dislocation. There is demonstration of total hip arthroplasty without evidence of immediate hardware failure. The soft tissues are unremarkable. Impression: Total hip arthroplasty without evidence of hardware failure. Dictated by Dami Ward MD @ Jun 24 2020 12:03PM Signed by Dr. Dami Ward @ Jun 24 2020 12:05PM
--- NOTE | 2020-06-24 12:09 | CR ---
Indication: Chest pain and tingling Comparison: None available. Technique: PA and Lateral views chest Findings: There is no focal consolidation, effusion, or pneumothorax. The cardiomediastinal silhouette is within normal limits. The bony thorax is grossly intact. Impression: No acute cardiopulmonary abnormality. Dictated by Dami Ward MD @ Jun 24 2020 12:07PM Signed by Dr. Dami Ward @ Jun 24 2020 12:07PM
[2020-06-24] MEDS ORDERED: Methocarbamol 750 MG TAB PO PRN (14:03)
--- NOTE | 2020-06-24 14:35 | PCM.HP.2 ---
H&P History of Present Illness - General Date of Service: 06/24/20 Admit Problem/Dx: Admission Diagnosis/Problem Admission Diagnosis/Problem Chest pain - History of Present Illness Initial Comments - Free Text/Narative: 59 yo male with pmh of hypertension, obesity and right hip replacement in 2018 who presented to ID clinic with complaints of chronic right hip pain that has been worsening over the past three months. Patient denies any fevers or rash. Patient has been following with Orthopedic clinic and last week at [facility] had an arthrocentesis. Patient reports today the pain from the hip radiating the lower abdomen, neck and left shoulder. He reports numbness of the left arm associated with this pain[facility] ED review EKG with Franchesca's display card writer and recommended observation. neck Pain Score (Numeric/FACES): 1 - Related Data Allergies/Adverse Reactions: Allergies Allergy/AdvReac Type Severity Reaction Status Date / Time Penicillins Allergy Anaphylactic Verified 06/24/20 14:16 Shock Home Medications: Home Meds amLODIPine [Norvasc] 10 mg PO QAM 07/24/17 [History] Losartan [Cozaar] 25 mg PO QAM 07/26/17 [History] Cholecalciferol (Vitamin D3) [Vitamin D3] 50 mcg PO DAILY 10/06/19 [History] Rosuvastatin [Crestor] 2.5 mg PO BEDTIME 06/24/20 [History] Sildenafil [Viagra] 50 mg PO BEDTIME PRN 06/24/20 [History] metFORMIN HCl [Metformin HCl ER] 1,000 mg PO DAILY 06/24/20 [History] methocarbamoL [Methocarbamol] 750 mg PO TID PRN 06/24/20 [History] Past Medical History HEENT History: Reports: Other (See Below) Other HEENT History: wears glasses, has upper front partial removable denture Cardiovascular History: Reports: Hypertension Respiratory History: Reports: None Gastrointestinal History: Reports: None, Other (See Below) Genitourinary History: Reports: None Musculoskeletal History: Reports: Fracture Other Musculoskeletal History: hx fx collarbone, right leg Neurological History: Reports: None Psychiatric History: Reports: None Endocrine/Metabolic History: Reports: Obesity/BMI 30+ Other Endocrine/Metabolic History: states was borderline diabetic and was on Metformin but lost weight and no longer on Metformin Hematologic History: Reports: None Immunologic History: Reports: None Oncologic (Cancer) History: Reports: None - Infectious Disease History Infectious Disease History: Reports: Chicken Pox, Measles, Mumps - Past Surgical History Head Surgeries/Procedures: Reports: None GI Surgical History: Reports: Colonoscopy, Hernia, Inguinal Male Surgical History: Reports: Other (See Below) Other Male Surgeries/Procedures: circumcision at age 20 Musculoskeletal Surgical History: Reports: Hip Replacement, Other (See Below) Other Musculoskeletal Surgeries/Procedures:: hx crush injury to rt leg, surgery on rt leg x4 (fasciotomy), rt hip replacement Dermatological Surgical History: Reports: Skin Graft Social & Family History - Family History Family Medical History: No Pertinent Family History - Caffeine Use Caffeine Use: Reports: None - Recreational Drug Use Recreational Drug Use: No H&P Review of Systems - Review of Systems: Review Of Systems: Comprehensive ROS is negative, except as noted in HPI. Exam - Exam Exam: See Below - Vital Signs Vital Signs: Last Vital Signs Temp 37.2 C 06/24/20 13:54 Pulse 59 L 06/24/20 13:54 Resp 18 06/24/20 13:54 BP 153/102 H 06/24/20 13:54 Pulse Ox 97 06/24/20 13:54 Weight: 101.151 kg - Exam General: Alert, Oriented HEENT: Mucosa Moist & [place] Lungs: Clear to Auscultation, Normal Respiratory Effort Cardiovascular: Regular Rate, Regular Rhythm GI/Abdominal Exam: Normal Bowel Sounds, Soft, Non-Tender Extremities: Normal Inspection, Normal Range of Motion, Non-Tender, No Pedal Edema, Normal Capillary Refill. No: Pedal Edema, Joint Swelling, Leg Pain, Increased Warmth, Pallor, Redness Skin: Warm, Dry, Intact - Patient Data Lab Results Last 24 hrs: Laboratory Results - last 24 hr 06/24/20 06/24/20 06/24/20 Range/Units 11:00 11:00 11:00 WBC 4.06 (4.0-11.0) K/uL RBC 5.29 (4.50-5.90) M/uL Hgb 15.6 (13.0-17.0) g/dL Hct 45.8 (38.0-50.0) % MCV 86.6 (80.0-98.0) fL MCH 29.5 (27.0-32.0) pg MCHC 34.1 (31.0-37.0) g/dL RDW Std Deviation 43.0 (28.0-62.0) fl RDW Coeff of Agatha 14 (11.0-15.0) % Plt Count 168 (150-400) K/uL MPV 9.80 (7.40-12.00) fL Neut % (Auto) 39.7 L (48.0-80.0) % Lymph % (Auto) 43.3 H (16.0-40.0) % [place] % (Auto) 9.4 (0.0-15.0) % Eos % (Auto) 7.4 H (0.0-7.0) % Baso % (Auto) 0.2 (0.0-1.5) % Neut # (Auto) 1.6 (1.4-5.7) K/uL Lymph # (Auto) 1.8 (0.6-2.4) K/uL [place] # (Auto) 0.4 (0.0-0.8) K/uL Eos # (Auto) 0.3 (0.0-0.7) K/uL Baso # (Auto) 0.0 (0.0-0.1) K/uL Nucleated RBC % 0.0 /100WBC Nucleated RBCs # 0 K/uL INR 1.03 APTT 23.6 (18.6-31.3) SEC Sodium 139 (136-148) mmol/L Potassium 4.3 (3.5-5.1) mmol/L Chloride 106 (98-107) mmol/L Carbon Dioxide 28.1 (21.0-32.0) mmol/L BUN 20 H (7.0-18.0) mg/dL Creatinine 1.4 H (0.8-1.3) mg/dL Est Cr Clr Drug Dosing 56.81 mL/min Estimated GFR (MDRD) > 60.0 ml/min Glucose 108 H (74-106) mg/dL Calcium 9.2 (8.5-10.1) mg/dL Total Bilirubin 0.5 (0.2-1.0) mg/dL AST 24 (15-37) IU/L ALT 46 (14-63) IU/L Alkaline Phosphatase 89 (46-116) U/L Creatine Kinase 324 H (26-308) U/L Troponin I < 0.050 (0.000-0.056) ng/mL Total Protein 7.6 (6.4-8.2) g/dL Albumin 3.9 (3.4-5.0) g/dL Globulin 3.7 (2.6-4.0) g/dL Albumin/Globulin Ratio 1.1 (0.9-1.6) SARS-CoV-2 RNA (BINDU) (NEGATIVE) 06/24/20 Range/Units 12:00 WBC (4.0-11.0) K/uL RBC (4.50-5.90) M/uL Hgb (13.0-17.0) g/dL Hct (38.0-50.0) % MCV (80.0-98.0) fL MCH (27.0-32.0) pg MCHC (31.0-37.0) g/dL RDW Std Deviation (28.0-62.0) fl RDW Coeff of Agatha (11.0-15.0) % Plt Count (150-400) K/uL MPV (7.40-12.00) fL Neut % (Auto) (48.0-80.0) % Lymph % (Auto) (16.0-40.0) % [place] % (Auto) (0.0-15.0) % Eos % (Auto) (0.0-7.0) % Baso % (Auto) (0.0-1.5) % Neut # (Auto) (1.4-5.7) K/uL Lymph # (Auto) (0.6-2.4) K/uL [place] # (Auto) (0.0-0.8) K/uL Eos # (Auto) (0.0-0.7) K/uL Baso # (Auto) (0.0-0.1) K/uL Nucleated RBC % /100WBC Nucleated RBCs # K/uL INR APTT (18.6-31.3) SEC Sodium (136-148) mmol/L Potassium (3.5-5.1) mmol/L Chloride (98-107) mmol/L Carbon Dioxide (21.0-32.0) mmol/L BUN (7.0-18.0) mg/dL Creatinine (0.8-1.3) mg/dL Est Cr Clr Drug Dosing mL/min Estimated GFR (MDRD) ml/min Glucose (74-106) mg/dL Calcium (8.5-10.1) mg/dL Total Bilirubin (0.2-1.0) mg/dL AST (15-37) IU/L ALT (14-63) IU/L Alkaline Phosphatase (46-116) U/L Creatine Kinase (26-308) U/L Troponin I (0.000-0.056) ng/mL Total Protein (6.4-8.2) g/dL Albumin (3.4-5.0) g/dL Globulin (2.6-4.0) g/dL Albumin/Globulin Ratio (0.9-1.6) SARS-CoV-2 RNA (BINDU) NEGATIVE (NEGATIVE) Result Diagrams: 06/24/20 11:00 06/24/20 11:00 Sepsis Event Note - Evaluation Sepsis Screening Result: No Definite Risk - Focused Exam Vital Signs: Vital Signs Temp Pulse Resp BP Pulse Ox 06/24/20 13:54 37.2 C 59 L 18 153/102 H 97 06/24/20 13:22 57 L 18 150/97 H 97 06/24/20 13:07 56 L 18 144/94 H 97 06/24/20 12:52 54 L 18 137/87 98 06/24/20 12:37 57 L 18 155/92 H 98 06/24/20 12:22 64 18 151/103 H 98 06/24/20 12:09 66 18 179/103 H 98 06/24/20 11:37 57 L 18 147/89 H 98 06/24/20 11:22 60 18 158/91 H 98 06/24/20 11:05 36.8 C 65 18 184/126 H 96 Problem List Initiated/Reviewed/Updated: Yes Orders Last 24hrs: Active Orders 24 hr Category Date Time Status Patient Status [ADT] Routine ADT 06/24/20 13:14 Active Antiembolic Devices [RC] PER UNIT ROUTINE Care 06/24/20 14:07 Active Oxygen Therapy [RC] PRN Care 06/24/20 14:06 Active Up ad Flavia [RC] ASDIRECTED Care 06/24/20 14:06 Active VTE/DVT Education [RC] PER UNIT ROUTINE Care 06/24/20 14:06 Active Vital Signs [RC] Q4H Care 06/24/20 14:06 Active Regular Diet [DIET] Diet 06/24/20 Breakfast Active BASIC METABOLIC PANEL,BMP [CHEM] AM Lab 06/25/20 05:11 Ordered CBC WITH AUTO DIFF [HEME] AM Lab 06/25/20 05:11 Ordered CORONAVIRUS COVID-19 PCR PHL Stat Lab 06/24/20 12:16 Ordered TROPONIN I [CHEM] Q6H Lab 06/24/20 17:00 Ordered TROPONIN I [CHEM] Q6H Lab 06/24/20 23:00 Ordered Cholecalciferol (Vitamin D3) [Vitamin D3] Med 06/25/20 09:00 Active 50 mcg PO DAILY Losartan [Cozaar] Med 06/25/20 09:00 Active 25 mg PO QAM Patient's Own Medication [Ptom] Med 06/24/20 21:00 Active 1 each PO BEDTIME amLODIPine [Norvasc] Med 06/25/20 09:00 Active 10 mg PO QAM methocarbamoL Med 06/24/20 14:03 Active 750 mg PO TID PRN Obtain Past Medical Record [OM.PC] Routine Oth 06/24/20 14:04 Active Sequential Compression Device [OM.PC] Per Unit Routine Oth 06/24/20 14:07 Ordered Resuscitation Status Routine Resus Stat 06/24/20 14:06 Ordered Medication Orders Amlodipine Besylate (Norvasc) 10 mg PO QAM YASMIN Cholecalciferol (Vitamin D3) 50 mcg PO DAILY YASMIN Losartan Potassium (Cozaar) 25 mg PO QAM YASMIN Methocarbamol (Methocarbamol) 750 mg PO TID PRN PRN Reason: Other Rosuvastatin 2.5 Mg 1 each PO BEDTIME YASMIN Assessment/Plan Comment:: 59 yo male who presented with hip pain. ED requesting admisison for ACS rule out. We will monitor overnight on telemetry and trend cardiac enzymes. We will obtain records from his orthopedic clinic.
[2020-06-24] MEDS ORDERED: Calcium Carbonate 500 MG Tab.Chew PO PRN (18:17)
[2020-06-24] MEDS ORDERED: Cyclobenzaprine 5 MG Tab PO PRN (23:05)
[2020-06-25 06:37] LABS: CARBON DIOXIDE,CO2 29.7 mmol/L (21.0-32.0); POTASSIUM,K 4.7 mmol/L (3.5-5.1)
[2020-06-25] MEDS ORDERED: Losartan 50 MG Tab PO SCH (09:00)
[2020-06-25] MEDS ORDERED: amLODIPine 5 MG Tab PO SCH (09:00)
[2020-06-25] MEDS ORDERED: Cholecalciferol (Vitamin D3) 25 MCG Tab PO SCH (09:00)
[2020-06-25 13:25] LABS: HEMOGLOBIN A1C 6.2 %
--- NOTE | 2020-06-25 16:29 | PCM.DCSUM1 ---
<Benjamin Whitt - Last Filed: 06/25/20 17:28> Discharge Summary - Hospital Course Free Text/Narrative:: 59-year-old male admitted for ACS rule out. Patient states that he was having pain in his right hip, lower abdomen, which radiated to his left arm and left shoulder. Patient states that he was having difficulty squeezing his left hand. Patient states numbness and tingling sensation of the left shoulder left arm and left hand prior to being seen in the ED. Patient was seen in orthopedic clinic last week at [facility] for arthrocentesis. On presentation to the ER it was noted that the patient had elevations in leads V2 and V3. Cardiology [place] was consulted and the recommendation was to keep patient overnight for observation. Patient's troponin x 3 were negative. Patient denied chest pain, shortness of breath dizziness lightheadedness. Patient denies any history of he art attack or strokes. Patient's past medical history includes hypertension, prediabetes, right hip and right leg fracture. Patient observed overnight discharge the next morning with no complaints. Patient was advised to have an outpatient echocardiogram, follow-up with his primary care provider regarding his borderline HbA1c which was 6.2, and review all of his current medications with his PCP. Patient was also prescribed 81 mg baby aspirin. Patient currently takes a statin medication. - Discharge Data Discharge Date: 06/25/20 Discharge Disposition: Home, Self-Care 01 Condition: Good - Referral to Home Health Primary Care Physician: PCP None - Patient Instructions Diet: Heart Healthy Diet Activity: As Tolerated Driving: May Drive Today Showering/Bathing: May Shower Notify Provider of: Fever, Increased Pain, Swelling and Redness, Nausea and/or Vomiting Other/Special Instructions: Recommend outpatient Echocardiogram. Discuss 81mg asprin with PCP - Discharge Plan *PRESCRIPTION DRUG MONITORING PROGRAM REVIEWED*: Not Applicable *COPY OF PRESCRIPTION DRUG MONITORING REPORT IN PATIENT LEE: Not Applicable Prescriptions/Med Rec: Aspirin [Adult Aspirin Regimen] 81 mg PO DAILY 30 Days #30 tablet.dr Jiménez Medications: Home Meds amLODIPine [Norvasc] 10 mg PO QAM 07/24/17 [History] Losartan [Cozaar] 25 mg PO QAM 07/26/17 [History] Cholecalciferol (Vitamin D3) [Vitamin D3] 50 mcg PO DAILY 10/06/19 [History] Rosuvastatin [Crestor] 2.5 mg PO BEDTIME 06/24/20 [History] Sildenafil [Viagra] 50 mg PO BEDTIME PRN 06/24/20 [History] metFORMIN HCl [Metformin HCl ER] 1,000 mg PO DAILY 06/24/20 [History] methocarbamoL [Methocarbamol] 750 mg PO TID PRN 06/24/20 [History] Aspirin [Adult Aspirin Regimen] 81 mg PO DAILY 30 Days #30 tablet. 06/25/20 [Rx] Patient Handouts: Nonspecific Chest Pain, Adult, [id number] Forms: ED Department Discharge Referrals: PCP,None [Primary Care Provider] - (Call the [place] clinic on Saturday Morning to make follow up appointment. ) - Discharge Summary/Plan Comment DC Time >30 min.: Yes - Review of Systems General: Denies: Fever, Chills Pulmonary: Denies: Shortness of Breath Cardiovascular: Denies: Chest Pain, Palpitations, Dyspnea on Exertion Gastrointestinal: Denies: Abdominal Pain, Nausea, Vomiting Musculoskeletal: Denies: Arm Pain, Hand Pain Neurological: Denies: Dizziness, Headache - Patient Data Vitals - Most Recent: Last Vital Signs Temp 97.8 F 06/25/20 08:00 Pulse 68 06/25/20 08:00 Resp 14 06/25/20 08:00 BP 156/97 H 06/25/20 11:05 Pulse Ox 95 06/25/20 08:00 Weight - Most Recent: 101.151 kg I&O - Last 24 hours: Intake & Output 06/25/20 06/25/20 06/25/20 06:59 14:59 22:59 Intake Total 550 Balance 550 Lab Results - Last 24 hrs: Laboratory Results - last 24 hr 06/24/20 06/24/20 06/25/20 Range/Units 16:59 23:10 05:50 WBC 4.00 (4.0-11.0) K/uL RBC 5.19 (4.50-5.90) M/uL Hgb 15.1 (13.0-17.0) g/dL Hct 45.1 (38.0-50.0) % MCV 86.9 (80.0-98.0) fL MCH 29.1 (27.0-32.0) pg MCHC 33.5 (31.0-37.0) g/dL RDW Std Deviation 42.8 (28.0-62.0) fl RDW Coeff of Agatha 14 (11.0-15.0) % Plt Count 163 (150-400) K/uL MPV 9.70 (7.40-12.00) fL Neut % (Auto) 32.3 L (48.0-80.0) % Lymph % (Auto) 50.7 H (16.0-40.0) % [place] % (Auto) 9.0 (0.0-15.0) % Eos % (Auto) 7.5 H (0.0-7.0) % Baso % (Auto) 0.5 (0.0-1.5) % Neut # (Auto) 1.3 L (1.4-5.7) K/uL Lymph # (Auto) 2.0 (0.6-2.4) K/uL [place] # (Auto) 0.4 (0.0-0.8) K/uL Eos # (Auto) 0.3 (0.0-0.7) K/uL Baso # (Auto) 0.0 (0.0-0.1) K/uL Nucleated RBC % 0.0 /100WBC Nucleated RBCs # 0 K/uL Sodium (136-148) mmol/L Potassium (3.5-5.1) mmol/L Chloride (98-107) mmol/L Carbon Dioxide (21.0-32.0) mmol/L BUN (7.0-18.0) mg/dL Creatinine (0.8-1.3) mg/dL Est Cr Clr Drug Dosing mL/min Estimated GFR (MDRD) ml/min Glucose (74-106) mg/dL POC Glucose (60-110) mg/dL Hemoglobin A1c (4.5 - 6.2) % Calcium (8.5-10.1) mg/dL Phosphorus (2.6-4.7) mg/dL Magnesium (1.8-2.4) mg/dL Troponin I < 0.050 < 0.050 (0.000-0.056) ng/mL Triglycerides (0-200) mg/dL Cholesterol (50-200) mg/dL LDL Cholesterol, Calc (60-180) mg/dL VLDL Cholesterol (5-55) mg/dL HDL Cholesterol (40-60) mg/dL Cholesterol/HDL Ratio (3.3-6.0) 06/25/20 06/25/20 06/25/20 Range/Units 05:50 05:50 05:50 WBC (4.0-11.0) K/uL RBC (4.50-5.90) M/uL Hgb (13.0-17.0) g/dL Hct (38.0-50.0) % MCV (80.0-98.0) fL MCH (27.0-32.0) pg MCHC (31.0-37.0) g/dL RDW Std Deviation (28.0-62.0) fl RDW Coeff of Agatha (11.0-15.0) % Plt Count (150-400) K/uL MPV (7.40-12.00) fL Neut % (Auto) (48.0-80.0) % Lymph % (Auto) (16.0-40.0) % [place] % (Auto) (0.0-15.0) % Eos % (Auto) (0.0-7.0) % Baso % (Auto) (0.0-1.5) % Neut # (Auto) (1.4-5.7) K/uL Lymph # (Auto) (0.6-2.4) K/uL [place] # (Auto) (0.0-0.8) K/uL Eos # (Auto) (0.0-0.7) K/uL Baso # (Auto) (0.0-0.1) K/uL Nucleated RBC % /100WBC Nucleated RBCs # K/uL Sodium 141 (136-148) mmol/L Potassium 4.7 (3.5-5.1) mmol/L Chloride 105 (98-107) mmol/L Carbon Dioxide 29.7 (21.0-32.0) mmol/L BUN 18 (7.0-18.0) mg/dL Creatinine 1.6 H (0.8-1.3) mg/dL Est Cr Clr Drug Dosing 49.71 mL/min Estimated GFR (MDRD) 53.9 ml/min Glucose 118 H (74-106) mg/dL POC Glucose (60-110) mg/dL Hemoglobin A1c 6.2 (4.5 - 6.2) % Calcium 8.9 (8.5-10.1) mg/dL Phosphorus 4.3 (2.6-4.7) mg/dL Magnesium 2.0 (1.8-2.4) mg/dL Troponin I (0.000-0.056) ng/mL Triglycerides (0-200) mg/dL Cholesterol (50-200) mg/dL LDL Cholesterol, Calc (60-180) mg/dL VLDL Cholesterol (5-55) mg/dL HDL Cholesterol (40-60) mg/dL Cholesterol/HDL Ratio (3.3-6.0) 06/25/20 06/25/20 Range/Units 05:50 06:10 WBC (4.0-11.0) K/uL RBC (4.50-5.90) M/uL Hgb (13.0-17.0) g/dL Hct (38.0-50.0) % MCV (80.0-98.0) fL MCH (27.0-32.0) pg MCHC (31.0-37.0) g/dL RDW Std Deviation (28.0-62.0) fl RDW Coeff of Agatha (11.0-15.0) % Plt Count (150-400) K/uL MPV (7.40-12.00) fL Neut % (Auto) (48.0-80.0) % Lymph % (Auto) (16.0-40.0) % [place] % (Auto) (0.0-15.0) % Eos % (Auto) (0.0-7.0) % Baso % (Auto) (0.0-1.5) % Neut # (Auto) (1.4-5.7) K/uL Lymph # (Auto) (0.6-2.4) K/uL [place] # (Auto) (0.0-0.8) K/uL Eos # (Auto) (0.0-0.7) K/uL Baso # (Auto) (0.0-0.1) K/uL Nucleated RBC % /100WBC Nucleated RBCs # K/uL Sodium (136-148) mmol/L Potassium (3.5-5.1) mmol/L Chloride (98-107) mmol/L Carbon Dioxide (21.0-32.0) mmol/L BUN (7.0-18.0) mg/dL Creatinine (0.8-1.3) mg/dL Est Cr Clr Drug Dosing mL/min Estimated GFR (MDRD) ml/min Glucose (74-106) mg/dL POC Glucose 121 H (60-110) mg/dL Hemoglobin A1c (4.5 - 6.2) % Calcium (8.5-10.1) mg/dL Phosphorus (2.6-4.7) mg/dL Magnesium (1.8-2.4) mg/dL Troponin I (0.000-0.056) ng/mL Triglycerides 95 (0-200) mg/dL Cholesterol 180 (50-200) mg/dL LDL Cholesterol, Calc 120 (60-180) mg/dL VLDL Cholesterol 19 (5-55) mg/dL HDL Cholesterol 41 (40-60) mg/dL Cholesterol/HDL Ratio 4.4 (3.3-6.0) Med Orders - Current: Current Medications Discontinued Medications Amlodipine Besylate (Norvasc) 10 mg PO [facility] Last Admin: 06/25/20 11:04 Dose: 10 mg Documented by: Aspirin (Aspirin) 324 mg PO ONETIME ONE Stop: 06/24/20 11:09 Last Admin: 06/24/20 11:12 Dose: Not Given Documented by: Aspirin (Aspirin) 324 mg PO ONETIME ONE Stop: 06/24/20 11:07 Last Admin: 06/24/20 11:12 Dose: 324 mg Documented by: Calcium Carbonate/Glycine (Tums) 500 mg PO Q2HR PRN PRN Reason: Indigestion Last Admin: 06/24/20 18:39 Dose: 500 mg Documented by: Cholecalciferol (Vitamin D3) 50 mcg PO DAILY [facility] Last Admin: 06/25/20 11:06 Dose: 50 mcg Documented by: Cyclobenzaprine HCl (Flexeril) 5 mg PO TID PRN PRN Reason: Muscle Spasm Last Admin: 06/24/20 23:23 Dose: 5 mg Documented by: Losartan Pot[facility]) [facility] Last Admin: 06/25/20 11:05 Dose: 25 mg Documented by: Methocarbamol (Methocarbamol) 750 mg PO TID PRN PRN Reason: Other Rosuvastatin 2.5 Mg 1 each PO BEDTIME [facility] Last Admin: 06/24/20 22:08 Dose: Not Given Documented by: - Exam General: Reports: Alert, Oriented Lungs: Reports: Clear to Auscultation, Normal Respiratory Effort Cardiovascular: Reports: Regular Rate, Regular Rhythm GI/Abdominal Exam: Normal Bowel Sounds, Soft, Non-Tender Extremities: No Pedal Edema <Varun Barrios - Last Filed: 06/26/20 18:28> Discharge Summary - Hospital Course Free Text/Narrative:: I have seen and evaluated the patient and agree with the residents note unless specified in my note - Referral to Home Health Primary Care Physician: PCP None - Patient Data Vitals - Most Recent: Last Vital Signs Temp 36.6 C 06/25/20 08:00 Pulse 68 06/25/20 08:00 Resp 14 06/25/20 08:00 BP 156/97 H 06/25/20 11:05 Pulse Ox 95 06/25/20 08:00 Med Orders - Current: Current Medications Discontinued Medications Amlodipine Besylate (Norvasc) 10 mg PO [facility] Last Admin: 06/25/20 11:04 Dose: 10 mg Documented by: Aspirin (Aspirin) 324 mg PO ONETIME ONE Stop: 06/24/20 11:09 Last Admin: 06/24/20 11:12 Dose: Not Given Documented by: Aspirin (Aspirin) 324 mg PO ONETIME ONE Stop: 06/24/20 11:07 Last Admin: 06/24/20 11:12 Dose: 324 mg Documented by: Calcium Carbonate/Glycine (Tums) 500 mg PO Q2HR PRN PRN Reason: Indigestion Last Admin: 06/24/20 18:39 Dose: 500 mg Documented by: Cholecalciferol (Vitamin D3) 50 mcg PO DAILY [facility] Last Admin: 06/25/20 11:06 Dose: 50 mcg Documented by: Cyclobenzaprine HCl (Flexeril) 5 mg PO TID PRN PRN Reason: Muscle Spasm Last Admin: 06/24/20 23:23 Dose: 5 mg Documented by: Losartan Potassium (Cozaar) 25 mg PO QAM [facility] Last Admin: 06/25/20 11:05 Dose: 25 mg Documented by: Methocarbamol (Methocarbamol) 750 mg PO TID PRN PRN Reason: Other Rosuvastatin 2.5 Mg 1 each PO BEDTIME [facility] Last Admin: 06/24/20 22:08 Dose: Not Given Documented by:
== END 2020-06-25 14:55 | disposition home or self-care (01) ==
LOC: MW.ED 10:59 → MW.MS 13:14
PROVIDERS: ADMIT Internal Medicine; ATTEND Internal Medicine
DX: G89.29 Other chronic pain (principal); M25.551 Pain in right hip; I10 Essential (primary) hypertension; E66.9 Obesity, unspecified; Z88.0 Allergy status to penicillin; Z79.899 Other long term (current) drug therapy; Z98.890 Other specified postprocedural states; Z20.828 Contact with and (suspected) exposure to other viral communicable diseases; Z96.641 Presence of right artificial hip joint; Z68.32 Body mass index [BMI] 32.0-32.9, adult
CPT/HCPCS: 36415; 71046; 73502; 80048; 80053; 80061; 82550; 82962; 83036; 83735; 84100; 84484; 85025; 85610; 85730; 87635; 93005; 99285; A9270; G0378; 93010; 99284; U0002

== ENCOUNTER 2020-07-24 16:35 | Emergency (ER) | payer OTHER | END 2020-07-24 16:53 | disposition left against medical advice (07) | LOC: MW.ED 16:35 | DX: Z53.21 Procedure and treatment not carried out due to patient leaving prior to being seen by health care provider (principal) ==

== ENCOUNTER 2021-04-12 06:41 | Day surgery (SDC) | payer OTHER ==
[2021-04-12] MEDS ORDERED: Lidocaine 2% 5 ML SDV ONE (07:26)
[2021-04-12] MEDS ORDERED: propofoL 50 ML ONE (07:26)
--- NOTE | 2021-04-12 07:33 | PCM.PREANE ---
Preanesthetic Assessment - Anesthesia/Transfusion/Family Hx Anesthesia History: Prior Anesthesia Without Reaction Other Type of Anesthesia Reaction Comment: "father after coronary stent placement" "sister hard to wake" Family History of Anesthesia Reaction: No Transfusion History: No Prior Transfusion(s) Intubation History: Unknown - Review of Systems General: No Symptoms Pulmonary: No Symptoms Cardiovascular: No Symptoms Gastrointestinal: No Symptoms Neurological: No Symptoms Other: Reports: None - Physical Assessment NPO Status Date: 04/12/21 NPO Status Time: 00:00 Vital Signs: Last Vital Signs Temp 97.3 F 04/12/21 06:55 Pulse 71 04/12/21 06:55 Resp 15 04/12/21 06:55 BP 148/99 H 04/12/21 06:55 Pulse Ox 96 04/12/21 06:55 Height: 5 ft 9 in Weight: 233 lb ASA Class: 3 Mental Status: Alert & Oriented x3 Airway Class: Mallampati = 2 Dentition: Reports: Missing Tooth/Teeth Thyro-Mental Finger Breadths: 3 Mouth Opening Finger Breadths: 3 ROM/Head Extension: Full Lungs: Clear to Auscultation, Normal Respiratory Effort Cardiovascular: Regular Rate, Regular Rhythm - Allergies Allergies/Adverse Reactions: Allergies Allergy/AdvReac Type Severity Reaction Status Date / Time Penicillins Allergy Anaphylactic Verified 04/06/21 07:28 Shock shellfish derived Allergy throat Verified 04/06/21 07:28 swells - Acknowledgements Anesthesia Type Planned: General Anesthesia Pt an Appropriate Candidate for the Planned Anesthesia: Yes Alternatives and Risks of Anesthesia Discussed w Pt/Guardian: Yes Pt/Guardian Understands and Agrees with Anesthesia Plan: Yes PreAnesthesia Questionnaire HEENT History: Reports: Other (See Below) Other HEENT History: wears glasses, Cardiovascular History: Reports: High Cholesterol, Hypertension Respiratory History: Reports: None Gastrointestinal History: Reports: Colon Polyp, Helicobacter Pylori, Other (See Below) Other Gastrointestinal History: c/o abd bloating Genitourinary History: Reports: None Musculoskeletal History: Reports: Fracture Other Musculoskeletal History: hx fx collarbone, crush injury to right leg Neurological History: Reports: None Psychiatric History: Reports: None Endocrine/Metabolic History: Reports: Obesity/BMI 30+, Other (See Below) Other Endocrine/Metabolic History: borderline diabetic, on metformin in the past Hematologic History: Reports: None Immunologic History: Reports: None Oncologic (Cancer) History: Reports: None Dermatologic History: Reports: None - Infectious Disease History Infectious Disease History: Reports: Chicken Pox, Measles, Mumps - Past Surgical History Head Surgeries/Procedures: Reports: None HEENT Surgical History: Reports: None Cardiovascular Surgical History: Reports: None Respiratory Surgical History: Reports: None GI Surgical History: Reports: Colonoscopy, Hernia, Inguinal Male Surgical History: Reports: Other (See Below) Other Male Surgeries/Procedures: circumcision at age 20 Endocrine Surgical History: Reports: None Neurological Surgical History: Reports: None Musculoskeletal Surgical History: Reports: Hip Replacement, Other (See Below) Other Musculoskeletal Surgeries/Procedures:: hx crush injury to rt leg, surgery on rt leg x4 (fasciotomy), rt hip replacement Oncologic Surgical History: Reports: None Dermatological Surgical History: Reports: Skin Graft - SUBSTANCE USE Tobacco Use Status *Q: Never Tobacco User - HOME MEDS Home Medications: Home Meds amLODIPine [Norvasc] 5 mg PO QAM 07/24/17 [History] Losartan [Cozaar] 25 mg PO QAM 07/26/17 [History] Cholecalciferol (Vitamin D3) [Vitamin D3] 1,000 units PO DAILY 10/06/19 [Histo ry] - CURRENT (IN HOUSE) MEDS Current Meds: Current Medications Lactated Ringer's (Ringers, Lactated) 1,000 mls @ 125 mls/hr IV [facility] Last Admin: 04/12/21 07:07 Dose: 125 mls/hr Documented by: Discontinued Medications Propofol (Diprivan 50 Ml) Confirm Administered Dose 50 mls @ as directed .ROUTE .STK-MED ONE Stop: 04/12/21 07:27 Lidocaine (Lidocaine 2% 5 Ml Sdv) Confirm Administered Dose 5 ml .ROUTE .STK-MED ONE Stop: 04/12/21 07:27
[2021-04-12] MEDS ORDERED: Propofol 200 MG/20 ML SDV ONE (08:33)
--- NOTE | 2021-04-12 09:05 | PCM.POSTAN ---
POST ANESTHESIA ASSESSMENT - MENTAL STATUS Mental Status: Alert, Oriented - VITAL SIGNS Vital Signs: Last Vital Signs Temp 97.3 F 04/12/21 06:55 Pulse 71 04/12/21 06:55 Resp 15 04/12/21 06:55 BP 148/99 H 04/12/21 06:55 Pulse Ox 96 04/12/21 06:55 - RESPIRATORY Respiratory Status: Respiratory Rate WNL, Airway Patent, O2 Saturation Stable - CARDIOVASCULAR CV Status: Pulse Rate WNL, Blood Pressure Stable - GASTROINTESTINAL GI Status: No Symptoms - POST OP HYDRATION Hydration Status: Adequate & Stable
--- NOTE | 2021-04-12 09:06 | PCM48HPAN ---
Post Anesthesia Note - EVALUATION WITHIN 48HRS OF ANESTHETIC Vital Signs in Normal Range: Yes Patient Participated in Evaluation: Yes Respiratory Function Stable: Yes Airway Patent: Yes Cardiovascular Function Stable: Yes Hydration Status Stable: Yes Pain Control Satisfactory: Yes Nausea and Vomiting Control Satisfactory: Yes Mental Status Recovered: Yes Vital Signs: Last Vital Signs Temp 97.3 F 04/12/21 06:55 Pulse 71 04/12/21 06:55 Resp 15 04/12/21 06:55 BP 148/99 H 04/12/21 06:55 Pulse Ox 96 04/12/21 06:55
--- NOTE | 2021-04-12 09:10 | PCM.OPNOTE ---
- General Post-Op/Procedure Note Date of Surgery/Procedure: 04/12/21 Operative Procedure(s): egd w bx. colonoscopy Findings: see [id number] Pre Op Diagnosis: tv polyp hx and gerd Post-Op Diagnosis: Same Anesthesia Technique: Moderate Sedation Primary Surgeon: Eren Gibbs Pathology: egd bx Complications: None Condition: Good
--- NOTE | 2021-04-14 07:16 | OR ---
SURGEON: Eren Gibbs MD DATE OF PROCEDURE: 04/12/2021 PREOPERATIVE DIAGNOSIS: History of tubulovillous polyp and GERD POSTOPERATIVE DIAGNOSES: History of tubulovillous polyp and GERD PROCEDURES: 1. EGD with biopsy. 2. Colonoscopy. DESCRIPTION OF PROCEDURE: EGD: The patient was taken to the endoscopy room, and with the [employer], Diprivan was administered. A well-lubricated EGD scope was gently inserted through the oropharynx, down the esophagus, passing through the gastroesophageal junction, into the stomach. The mucosa was examined upon the passage. Any etiology will be noted. Once in the stomach, we continued to advance to the distal antrum, passed through the pylorus into the second portion of the duodenum. Again, the mucosa was examined for any abnormality and etiology. The scope was then retrieved back to the stomach and then retroflexed to look at the fundus of the stomach. If a biopsy was indicated, we will biopsy the antrum, body, and gastroesophageal junction. The air will be sucked out while the scope is retrieved to reduce the patient's discomfort. The patient tolerated the procedure well. There were no intraoperative complications. Dr. Gibbs was present through the whole procedure. Prior to surgery, a time-out had been called, the patient identified, procedure identified and antibiotic administered. Colonoscopy: The patient was taken to the endoscopy room. A time out was called, patient identified, and procedure identified. Diprivan was then administrated. Patient went from awake to sleep, hearing doctor talking or door closing is normal. Perineum inspection and digital examination were then performed. A well-lubricated colonoscope was gently inserted through the rectum, advanced past the rectosigmoid junction, the descending colon, splenic flexure, transverse colon, hepatic flexure, ascending colon, arrived to the cecum. Cecum was identified as dictated in the finding. Then the scope was carefully withdrawn while attention was paid to the mucosal surface for any abnormality. Air will be sucked out during the scope withdrawal. At the rectum, retroflexed to examine any rectal diseases, fistula or hemorrhoids. Patient tolerated procedure well. There were no intraoperative complications, and Dr. Gibbs was present throughout the whole procedure. DIAGNOSES: 1. Gastroesophageal reflux disease. 2. Internal hemorrhoids. FINDINGS: EGD findings: 1. Patient is easily sedated with [employer] and Diprivan, the patient is soundly snoring. 2. Oropharynx and proximal esophagus are free of disease, stricture, inflammation. Distal esophagus at GE junction at 40 shows moderate salmon- colored change suggests acid reflux. Stomach rugae is normal in appearance. Antrum looks fine. Duodenum looks grossly normal. Retroflexed look at the fundus of stomach, there is no hiatal hernia. Biopsy done at antrum, body, GE junction at 40 and sucked out air while scope coming out. When examined, retroflexed look at the fundus of stomach note that there is some red color spot around the greater curvature that was biopsied. Throughout the whole study, there is no bile, blood, food particle observed. Colonoscopy Findings: 1. Patient is easily sedated with [employer] and Diprivan. Patient is soundly snoring. 2. Bowel prep is average to a little bit below average. A large amount of opaque yellow liquid stool covering the mucosa, but they are very easily to be able to irrigated out. Colon is rather straightforward. Cecum indicated by ileocecal fold, one-to-one indentation, appendiceal orifice, and ScopeGuide is pointing south. Light emittance is not observed. Mucosa was examined upon scope pulling out with a large amount of irrigation. The patient does not have polyp, mass, growth, inflammation, stricture, AV malformation, bleeding, diverticulosis, none of those. At the previous area 45 cm where the TV polyp was located, it was squeaky clean, nothing there. The patient has mild internal hemorrhoids, no external hemorrhoids. The patient would benefit from repeat colonoscopy in 10 years from today unless there is other clinical situation change. LILIA / CESAR /[id number] KT
== END 2021-04-12 09:50 | disposition home or self-care (01) ==
LOC: MW.SDS 06:41
PROVIDERS: ATTEND Surgery
DX: D12.6 Benign neoplasm of colon, unspecified (principal); K29.50 Unspecified chronic gastritis without bleeding; B96.81 Helicobacter pylori [H. pylori] as the cause of diseases classified elsewhere; K21.9 Gastro-esophageal reflux disease without esophagitis; K64.8 Other hemorrhoids; E78.5 Hyperlipidemia, unspecified; R14.0 Abdominal distension (gaseous); I10 Essential (primary) hypertension; Z88.0 Allergy status to penicillin; Z91.013 Allergy to seafood; Z79.899 Other long term (current) drug therapy; Z98.890 Other specified postprocedural states
CPT/HCPCS: 43239; 45378; 88305; 88342; J2704; J7120; 00813

== ENCOUNTER 2021-09-21 07:39 | Emergency (ER) | payer OTHER | END 2021-09-21 10:03 | disposition home or self-care (01) | LOC: MW.ED 07:39 | DX: K42.9 Umbilical hernia without obstruction or gangrene (principal); R14.0 Abdominal distension (gaseous); E66.9 Obesity, unspecified; Z68.30 Body mass index [BMI] 30.0-30.9, adult | CPT/HCPCS: 74176; 74176-26; 99283; 99283-25 ==

== ENCOUNTER 2021-11-04 19:04 | Emergency (ER) | payer OTHER ==
[2021-11-04] MEDS ORDERED: Sodium Chloride 0.9% 10 ML Syringe FLUSH PRN (19:06)
[2021-11-04] MEDS ORDERED: Sodium Chloride 0.9% 2.5 ML Syringe FLUSH PRN (19:06)
[2021-11-04] MEDS ORDERED: Sodium Chloride 0.9% 1,000 ML IV ONE ×2 (20:59)
[2021-11-04 22:03] LABS: CARBON DIOXIDE,CO2 23.7 mmol/L (21.0-32.0); POTASSIUM,K 4.8 mmol/L (3.5-5.1)
== END 2021-11-04 23:03 | disposition home or self-care (01) ==
LOC: MW.ED 19:04
DX: E11.65 Type 2 diabetes mellitus with hyperglycemia (principal); I10 Essential (primary) hypertension; E66.9 Obesity, unspecified; Z68.32 Body mass index [BMI] 32.0-32.9, adult; Z88.0 Allergy status to penicillin; Z91.013 Allergy to seafood; Z79.899 Other long term (current) drug therapy; Z79.84 Long term (current) use of oral hypoglycemic drugs
CPT/HCPCS: 36415; 71045; 80053; 81003; 82947; 85025; 93005; 99284; J3490; J7030; 93010; 99283

== ENCOUNTER 2021-11-10 14:34 | Emergency (ER) | payer OTHER ==
[2021-11-10] MEDS ORDERED: Sodium Chloride 0.9% 1,000 ML IV ONE ×2 (15:05→16:15)
[2021-11-10] MEDS ORDERED: Sodium Chloride 0.9% 10 ML Syringe FLUSH PRN (15:05)
[2021-11-10] MEDS ORDERED: Sodium Chloride 0.9% 2.5 ML Syringe FLUSH PRN (15:05)
[2021-11-10 15:24] LABS: BLOOD UREA NITROGEN,BUN 18 mg/dL (7.0-18.0); CARBON DIOXIDE,CO2 24.8 mmol/L (21.0-32.0); CHLORIDE,CL 97 mmol/L (98-107); GLUCOSE RANDOM 364 mg/dL (74-106); POTASSIUM,K 4.4 mmol/L (3.5-5.1); SODIUM,NA 132 mmol/L (136-148)
[2021-11-10 17:20] LABS: CORONAVIRUS COVID-19 NAA NEGATIVE (NEGATIVE); INFLUENZA A NAA NEGATIVE (NEGATIVE); INFLUENZA B NAA NEGATIVE (NEGATIVE)
== END 2021-11-10 19:31 | disposition home or self-care (01) ==
LOC: MW.ED 14:34
DX: E11.65 Type 2 diabetes mellitus with hyperglycemia (principal); R53.83 Other fatigue; R74.01 Elevation of levels of liver transaminase levels; E78.00 Pure hypercholesterolemia, unspecified; I10 Essential (primary) hypertension; E66.9 Obesity, unspecified; Z68.35 Body mass index [BMI] 35.0-35.9, adult; Z79.899 Other long term (current) drug therapy; Z79.84 Long term (current) use of oral hypoglycemic drugs; Z88.0 Allergy status to penicillin; Z20.822 Contact with and (suspected) exposure to COVID-19
CPT/HCPCS: 0240U; 36415; 36600; 71046; 80053; 81003; 82009; 82803; 84484; 85025; 86706; 86709; 86803; 87340; 93005; 99285; J3490; J7030

== ENCOUNTER 2022-11-28 17:35 | Emergency (ER) | payer OTHER ==
[2022-11-28] MEDS ORDERED: Cyclobenzaprine 10 MG Tab PO ONE (19:02)
[2022-11-28] MEDS ORDERED: Ibuprofen 600 MG Tab PO ONE (19:02)
[2022-11-28 19:43] LABS: BASOPHILS PERCENT AUTO 0.5 % (0.0-1.5); EOSINOPHILS ABSOLUTE AUTO 0.2 K/uL (0.0-0.7); EOSINOPHILS PERCENT AUTO 4.9 % (0.0-7.0); HEMATOCRIT 42.6 % (38.0-50.0); LYMPHOCYTES ABSOLUTE AUTO 1.9 K/uL (0.6-2.4); LYMPHOCYTES PERCENT AUTO 48.8 % (16.0-40.0); MEAN CORPUSCULAR HEMOGLOBIN 30.4 pg (27.0-32.0); MEAN CORPUSCULAR HGB CONC 35.2 g/dL (31.0-37.0); MEAN CORPUSCULAR VOLUME 86.4 fL (80.0-98.0); MONOCYTES ABSOLUTE AUTO 0.3 K/uL (0.0-0.8); MONOCYTES PERCENT AUTO 8.2 % (0.0-15.0); NEUTROPHILS ABSOLUTE AUTO 1.5 K/uL (1.4-5.7); NEUTROPHILS PERCENT AUTO 37.6 % (48.0-80.0); PLATELET COUNT,PLT 146 K/uL (150-400); RED BLOOD CELL COUNT 4.93 M/uL (4.50-5.90); WHITE BLOOD CELL COUNT,WBC 3.91 K/uL (4.0-11.0)
[2022-11-28 19:55] LABS: HEMOGLOBIN A1C 6.3 %
[2022-11-28 20:05] LABS: ALBUMIN 3.8 g/dL (3.4-5.0); BILIRUBIN TOTAL 0.6 mg/dL (0.2-1.0); CALCIUM 8.6 mg/dL (8.5-10.1); CARBON DIOXIDE,CO2 28.7 mmol/L (21.0-32.0); CREATININE 1.6 mg/dL (0.8-1.3); EST CRCL DRUG DOSING (CG) 47.87 mL/min; POTASSIUM,K 4.6 mmol/L (3.5-5.1); PROTEIN TOTAL,TP 7.5 g/dL (6.4-8.2)
== END 2022-11-28 20:44 | disposition home or self-care (01) ==
LOC: MW.ED 17:35
DX: M25.512 Pain in left shoulder (principal); I10 Essential (primary) hypertension; E11.9 Type 2 diabetes mellitus without complications; E66.9 Obesity, unspecified; Z68.44 Body mass index [BMI] 60.0-69.9, adult; Z88.0 Allergy status to penicillin; Z91.013 Allergy to seafood; Z79.84 Long term (current) use of oral hypoglycemic drugs; Z79.899 Other long term (current) drug therapy
CPT/HCPCS: 36415; 71045; 73030; 80053; 83036; 84484; 85025; 93005; 99284; A9270; 93010; 99283

== ENCOUNTER 2023-09-27 06:15 | Day surgery (SDC) | payer OTHER ==
[2023-09-27] MEDS: Lactated Ringers 1,000 ML IV SCH (07:16)
[2023-09-27] MEDS ORDERED: propofoL 50 ML ONE (07:27)
== END 2023-09-27 10:00 | disposition home or self-care (01) ==
LOC: MW.SDS 06:15
PROVIDERS: ATTEND Surgery
DX: Z12.11 Encounter for screening for malignant neoplasm of colon (principal); K29.50 Unspecified chronic gastritis without bleeding; K29.70 Gastritis, unspecified, without bleeding; M16.11 Unilateral primary osteoarthritis, right hip; D12.6 Benign neoplasm of colon, unspecified; E78.5 Hyperlipidemia, unspecified; M25.551 Pain in right hip; Z86.010 Personal history of colon polyps; Z86.19 Personal history of other infectious and parasitic diseases; Z79.899 Other long term (current) drug therapy; Z88.0 Allergy status to penicillin
CPT/HCPCS: 43239; 45378; J2704; J7120; 00813

== ENCOUNTER 2024-09-02 05:36 | Emergency (ER) | payer OTHER ==
[2024-09-02 06:13] LABS: BASOPHILS ABSOLUTE AUTO 0.03 K/uL (0.00-0.20); BASOPHILS PERCENT AUTO 0.7 % (0.0-1.0); EOSINOPHILS PERCENT AUTO 4.8 % (0.0-6.0); HEMATOCRIT 45.4 % (42.0-52.0); IMMATURE GRAN ABSOLUTE AUTO 0.01 K/uL (0.00-0.05); IMMATURE GRAN PERCENT AUTO 0.2 % (0.0-0.4); LYMPHOCYTES ABSOLUTE AUTO 1.37 K/uL (1.00-4.80); LYMPHOCYTES PERCENT AUTO 32.9 % (24.0-44.0); MEAN CORPUSCULAR HEMOGLOBIN 29.8 pg (28.0-32.0); MEAN CORPUSCULAR HGB CONC 37.4 g/dL (32.0-36.0); MEAN CORPUSCULAR VOLUME 79.6 fL (83.0-99.0); MEAN PLATELET VOLUME 10.3 fL (9.4-12.4); MONOCYTES ABSOLUTE AUTO 0.34 K/uL (0.00-0.80); MONOCYTES PERCENT AUTO 8.2 % (0.0-8.0); NEUTROPHILS ABSOLUTE AUTO 2.21 K/uL (1.80-7.70); NEUTROPHILS PERCENT AUTO 53.2 % (41.0-71.0); PLATELET COUNT,PLT 162 K/uL (150-400); WHITE BLOOD CELL COUNT,WBC 4.16 K/uL (3.9-11.3)
[2024-09-02] MEDS: Sodium Chloride 0.9% 1,000 ML IV ONE (06:17)
[2024-09-02 06:19] LABS: APPEARANCE,URINE CLEAR; BILIRUBIN,URINE NEGATIVE (NEGATIVE); COLOR,URINE YELLOW; GLUCOSE,URINE >=1000 mg/dL (NEGATIVE); KETONES,URINE TRACE mg/dL (NEGATIVE); LEUKOCYTE ESTERASE,URINE NEGATIVE (NEGATIVE); NITRITE,URINE NEGATIVE (NEGATIVE); OCCULT BLOOD,URINE NEGATIVE (NEGATIVE); PH,URINE 5.5 (5.0-8.0); PROTEIN,URINE NEGATIVE (NEGATIVE); UROBILINOGEN,URINE 0.2 EU/dL (<2.0)
[2024-09-02 06:42] LABS: A/G RATIO 1.1 (0.9-1.6); ALBUMIN 4.4 g/dL (3.4-5.0); BILIRUBIN DIRECT 0.2 mg/dL (0.0-0.5); BILIRUBIN INDIRECT 0.7; BILIRUBIN TOTAL 0.9 mg/dL (0.2-1.0); CALCIUM 9.6 mg/dL (8.5-10.1); CARBON DIOXIDE,CO2 23.2 mmol/L (21.0-32.0); CREATININE 1.8 mg/dL (0.8-1.3); EST CRCL DRUG DOSING (CG) 42.01 mL/min; POTASSIUM,K 4.9 mmol/L (3.5-5.1); PROTEIN TOTAL,TP 8.4 g/dL (6.4-8.2)
[2024-09-02] MEDS ORDERED: Glucagon,Human Recombinant 1 MG Vial IM PRN ×3 (06:45→13:11)
[2024-09-02] MEDS ORDERED: 50% Dextrose in Water 50 ML Syringe IVPUSH PRN ×3 (06:45→13:11)
[2024-09-02] MEDS: Aspirin 81 MG Tab.Chew PO ONE (06:55)
[2024-09-02] MEDS: Insulin Regular, Human 100 Units/ML 10 ML Vial IVPUSH ONE ×3 (06:57→13:33)
[2024-09-02] MEDS: Sodium Chloride 0.9% 1,000 ML IV SCH (08:22)
[2024-09-02 10:09] LABS: PH,VENOUS 7.43 (7.31-7.41)
[2024-09-02 10:35] LABS: CALCIUM 9.2 mg/dL (8.5-10.1); CARBON DIOXIDE,CO2 18.8 mmol/L (21.0-32.0); CREATININE 1.5 mg/dL (0.8-1.3); EST CRCL DRUG DOSING (CG) 50.41 mL/min; POTASSIUM,K 5.3 mmol/L (3.5-5.1)
== END 2024-09-02 14:50 | disposition home or self-care (01) ==
LOC: MW.ED 05:36
DX: E11.65 Type 2 diabetes mellitus with hyperglycemia (principal); I10 Essential (primary) hypertension; E78.00 Pure hypercholesterolemia, unspecified; Z88.0 Allergy status to penicillin; Z91.013 Allergy to seafood; Z79.84 Long term (current) use of oral hypoglycemic drugs; Z79.899 Other long term (current) drug therapy
CPT/HCPCS: 36415; 71045; 71045-26; 80048; 80076; 81003; 82803; 82947; 83690; 84484; 85025; 93005; 96360; 96361; 99285-25; A9270-GY; J1815-GY; J7030

== ENCOUNTER 2024-09-04 08:57 | Observation (INO) | payer OTHER ==
[2024-09-04] MEDS: Sodium Chloride 0.9% 1,000 ML IV ONE ×2 (09:44→10:55)
[2024-09-04 09:52] LABS: APPEARANCE,URINE CLEAR; BILIRUBIN,URINE NEGATIVE (NEGATIVE); COLOR,URINE YELLOW; GLUCOSE,URINE >=1000 mg/dL (NEGATIVE); KETONES,URINE 40 mg/dL (NEGATIVE); LEUKOCYTE ESTERASE,URINE NEGATIVE (NEGATIVE); NITRITE,URINE NEGATIVE (NEGATIVE); OCCULT BLOOD,URINE NEGATIVE (NEGATIVE); PH,URINE 5.5 (5.0-8.0); PROTEIN,URINE NEGATIVE (NEGATIVE); UROBILINOGEN,URINE 0.2 EU/dL (<2.0)
[2024-09-04 09:52] LABS: BASOPHILS ABSOLUTE AUTO 0.02 K/uL (0.00-0.20); BASOPHILS PERCENT AUTO 0.5 % (0.0-1.0); EOSINOPHILS ABSOLUTE AUTO 0.22 K/uL (0.00-0.45); EOSINOPHILS PERCENT AUTO 5.1 % (0.0-6.0); HEMATOCRIT 43.3 % (42.0-52.0); HEMOGLOBIN 16.1 g/dL (14.0-18.0); LYMPHOCYTES ABSOLUTE AUTO 1.54 K/uL (1.00-4.80); LYMPHOCYTES PERCENT AUTO 35.8 % (24.0-44.0); MEAN CORPUSCULAR HEMOGLOBIN 29.9 pg (28.0-32.0); MEAN CORPUSCULAR HGB CONC 37.2 g/dL (32.0-36.0); MEAN CORPUSCULAR VOLUME 80.3 fL (83.0-99.0); MEAN PLATELET VOLUME 10.2 fL (9.4-12.4); MONOCYTES ABSOLUTE AUTO 0.29 K/uL (0.00-0.80); MONOCYTES PERCENT AUTO 6.7 % (0.0-8.0); NEUTROPHILS ABSOLUTE AUTO 2.23 K/uL (1.80-7.70); NEUTROPHILS PERCENT AUTO 51.9 % (41.0-71.0); PLATELET COUNT,PLT 161 K/uL (150-400); RED BLOOD CELL COUNT 5.39 M/uL (4.52-5.90)
[2024-09-04 10:26] LABS: A/G RATIO 1.1 (0.9-1.6); BILIRUBIN TOTAL 0.8 mg/dL (0.2-1.0); CALCIUM 9.2 mg/dL (8.5-10.1); CARBON DIOXIDE,CO2 19.6 mmol/L (21.0-32.0); CREATININE 1.5 mg/dL (0.8-1.3); EST CRCL DRUG DOSING (CG) 50.41 mL/min; MAGNESIUM 1.9 mg/dL (1.8-2.4); POTASSIUM,K 4.4 mmol/L (3.5-5.1); PROTEIN TOTAL,TP 7.7 g/dL (6.4-8.2)
[2024-09-04] MEDS ORDERED: Glucagon,Human Recombinant 1 MG Vial IM PRN ×2 (10:28→13:45)
[2024-09-04] MEDS ORDERED: 50% Dextrose in Water 50 ML Syringe IVPUSH PRN ×2 (10:28→13:45)
[2024-09-04 10:37] LABS: HEMOGLOBIN A1C > 14.0 %
[2024-09-04] MEDS: Insulin Regular, Human 100 Units/ML 10 ML Vial IVPUSH ONE (10:52)
[2024-09-04] MEDS: Insulin Glargine,Hum.Rec.Anlog 100 UNIT/ML 3 ML Pen SUBCUT ONE (11:51)
[2024-09-04 12:49] LABS: PH,VENOUS 7.31 (7.31-7.41)
[2024-09-04 13:16] LABS: A/G RATIO 1.1 (0.9-1.6); ALBUMIN 3.7 g/dL (3.4-5.0); BILIRUBIN TOTAL 0.7 mg/dL (0.2-1.0); CALCIUM 8.6 mg/dL (8.5-10.1); CARBON DIOXIDE,CO2 21.6 mmol/L (21.0-32.0); CREATININE 1.3 mg/dL (0.8-1.3); EST CRCL DRUG DOSING (CG) 58.16 mL/min; POTASSIUM,K 4.6 mmol/L (3.5-5.1)
[2024-09-04] MEDS ORDERED: Acetaminophen 325 MG Tab PO PRN (13:43)
[2024-09-04] MEDS ORDERED: Polyethylene Glycol 3350 Powder 17 GM Packet PO PRN (13:43)
[2024-09-04] MEDS ORDERED: Docusate Sodium 100 MG Cap PO PRN (13:43)
[2024-09-04] MEDS ORDERED: Ondansetron 4 MG/2 ML SDV IVPUSH PRN (13:43)
[2024-09-04] MEDS ORDERED: Ketorolac 30 MG/ML SDV IM PRN (13:43)
[2024-09-04] MEDS ORDERED: Ondansetron 4 MG Tab.DIS PO PRN (13:43)
[2024-09-04] MEDS ORDERED: Albuterol/Ipratropium 3.0-0.5 MG/3 ML Neb Soln NEB PRN (13:43)
[2024-09-04] MEDS: Insulin Aspart 100 Units/ML 3 ML Pen SUBCUT SCH ×2 (14:35→20:26)
[2024-09-04] MEDS: Sodium Chloride 0.9% 1,000 ML IV SCH (14:43)
[2024-09-04] MEDS ORDERED: Insulin Glargine,Hum.Rec.Anlog 100 UNIT/ML 3 ML Pen SUBCUT SCH (21:00)
[2024-09-04] MEDS: Insulin Glargine,Hum.Rec.Anlog 100 UNIT/ML 3 ML Pen SUBCUT SCH (22:51)
[2024-09-05 06:00] LABS: BASOPHILS ABSOLUTE AUTO 0.02 K/uL (0.00-0.20); BASOPHILS PERCENT AUTO 0.5 % (0.0-1.0); EOSINOPHILS ABSOLUTE AUTO 0.22 K/uL (0.00-0.45); EOSINOPHILS PERCENT AUTO 5.7 % (0.0-6.0); HEMATOCRIT 37.4 % (42.0-52.0); HEMOGLOBIN 13.8 g/dL (14.0-18.0); LYMPHOCYTES ABSOLUTE AUTO 1.83 K/uL (1.00-4.80); LYMPHOCYTES PERCENT AUTO 47.7 % (24.0-44.0); MEAN CORPUSCULAR HEMOGLOBIN 29.9 pg (28.0-32.0); MEAN CORPUSCULAR HGB CONC 36.9 g/dL (32.0-36.0); MEAN PLATELET VOLUME 10.3 fL (9.4-12.4); MONOCYTES ABSOLUTE AUTO 0.31 K/uL (0.00-0.80); MONOCYTES PERCENT AUTO 8.1 % (0.0-8.0); NEUTROPHILS ABSOLUTE AUTO 1.46 K/uL (1.80-7.70); PLATELET COUNT,PLT 146 K/uL (150-400); RED BLOOD CELL COUNT 4.62 M/uL (4.52-5.90); WHITE BLOOD CELL COUNT,WBC 3.84 K/uL (3.9-11.3)
[2024-09-05 06:21] LABS: ALBUMIN 3.1 g/dL (3.4-5.0); BILIRUBIN TOTAL 0.7 mg/dL (0.2-1.0); CALCIUM 8.2 mg/dL (8.5-10.1); CARBON DIOXIDE,CO2 24.9 mmol/L (21.0-32.0); CREATININE 1.3 mg/dL (0.8-1.3); EST CRCL DRUG DOSING (CG) 58.16 mL/min; MAGNESIUM 1.7 mg/dL (1.8-2.4); POTASSIUM,K 4.2 mmol/L (3.5-5.1); PROTEIN TOTAL,TP 6.1 g/dL (6.4-8.2)
[2024-09-05] MEDS: Magnesium Oxide 400 MG Tab PO ONE (07:44)
[2024-09-05] MEDS: Rosuvastatin 10 MG Tab PO SCH (08:56)
[2024-09-05] MEDS: Losartan 25 MG Tab PO SCH (08:56)
[2024-09-05] MEDS: amLODIPine 5 MG Tab PO SCH (08:56)
== END 2024-09-05 15:45 | disposition home or self-care (01) ==
LOC: MW.ED 08:57 → MW.MS 12:14
PROVIDERS: ADMIT Family Medicine; ATTEND Family Medicine
DX: E11.65 Type 2 diabetes mellitus with hyperglycemia (principal); I10 Essential (primary) hypertension; E78.00 Pure hypercholesterolemia, unspecified; R82.4 Acetonuria; E66.9 Obesity, unspecified; Z79.84 Long term (current) use of oral hypoglycemic drugs; Z79.899 Other long term (current) drug therapy
CPT/HCPCS: 36415; 71045; 80053; 80061; 81003; 82803; 82947; 83036; 83735; 83880; 84484; 85025; 87428; 93005; 96360; 96361; 99285; A9270; G0378; J1815; J7030; 93010; 99222; 99239; 99284

== ENCOUNTER 2024-09-12 03:23 | Emergency (ER) | payer OTHER | END 2024-09-12 03:55 | disposition left against medical advice (07) | LOC: MW.ED 03:23 | DX: Z53.21 Procedure and treatment not carried out due to patient leaving prior to being seen by health care provider (principal) ==

== ENCOUNTER 2024-12-30 10:00 | Emergency (ER) | payer OTHER ==
[2024-12-30] MEDS: Naproxen 500 MG Tab PO ONE (11:05)
== END 2024-12-30 13:32 | disposition home or self-care (01) ==
LOC: MW.ED 10:00
DX: M25.552 Pain in left hip (principal); M25.511 Pain in right shoulder; I10 Essential (primary) hypertension; E66.9 Obesity, unspecified; E11.9 Type 2 diabetes mellitus without complications; Z88.0 Allergy status to penicillin; Z91.013 Allergy to seafood; Z79.4 Long term (current) use of insulin; Z79.84 Long term (current) use of oral hypoglycemic drugs; Z79.899 Other long term (current) drug therapy
CPT/HCPCS: 72170; 72192; 73030; 73552; 99284; A9270; 99282